=== PATIENT | female | born 1990 | race Caucasian/White ===

== ENCOUNTER → 2017-04-05 | Outpatient (CLI) | payer BC ==
[~2017-04-05] MED LIST: CRANBERRY1 CAP PO; DHA PO; FOLIC ACID0.4 MG PO; FOLIC ACID1 MG PO; IRON325 M1 PO; LEVEMIR100 U/ML SQ; MOTRIN 600600 MG/TAB PO; NORCO 325 MG-51 TAB PO; NOVOLOG 100U100 U/M1; PRENATAL1 TA1 PO; VIT B6; VITAMIN B6100 MG PO; ZANTAC 7575 MG PO
== END ==
LOC: BHSO 14:41
DX: F41.1 Generalized anxiety disorder (principal)

== ENCOUNTER 2019-01-27 08:55 | Emergency (ER) | payer MEDICAID ==
[~2019-01-27] VITALS: Ht 149.9 cm; Wt 72.7 kg
[2019-01-27 08:59] VITALS: TEMP 98.7
[2019-01-27] MEDS ORDERED: ZOFRAN ODT8 MG PO (09:11)
[2019-01-27 09:48] LABS: BASO # 0.1 (0.0-0.2); BASO % 0.6 % (0.0-2.0); EOS # 0.2 (0.0-0.7); EOS % 2.3 % (0-4.0); GRAN % 63.3 % (42.2-75.2); HEMOGLOBIN 11.9 g/dl (12.5-16.0); LYMPH # 2.3 (1.2-3.4); LYMPH % 28.7 % (20.0-51.0); MEAN CELL VOLUME 84 fl (80.0-100.0); MEAN CORPUSCULAR HEMOGLOBIN 28 pg (27.0-31.0); MEAN CORPUSCULAR HGB CONC 33 g/dl (33.0-37.0); MEAN PLATELET VOLUME 9.4 fl (7.4-10.4); MONO # 0.4 (0.1-0.6); MONO % 4.7 % (1.7-9.3); PLATELET COUNT 405 K/mm3 (130-400); RED BLOOD COUNT 4.27 M/mm3 (4.10-5.30); REDCELL DISTRIBUTION WIDTH-CV 12.2 % (11.5-14.5)
[2019-01-27 09:56] LABS: HEMATOCRIT 35.7 % (37.0-47.0)
[2019-01-27 10:08] LABS: ALBUMIN 4.1 gm/dL (3.5-5.0); BILIRUBIN,TOTAL 0.2 mg/dL (0.0-1.0); CALCIUM 9.1 mg/dL (8.4-10.2); CREATININE, serum 0.73 (0.52-1.25); POTASSIUM 3.4 mmol/L (3.4-5.0); TOTAL PROTEIN 7.3 gm/dL (6.4-8.2)
[2019-01-27 12:09] VITALS: BP 115/58; PULSE 91
== END 2019-01-27 12:22 | disposition home or self-care (01) ==
LOC: COL.ER 08:55
PROVIDERS: Emergency Medicine
DX: R19.7 Diarrhea, unspecified (principal); R51 Headache; F41.9 Anxiety disorder, unspecified; F43.10 Post-traumatic stress disorder, unspecified
CPT/HCPCS: J1200; J2765; J7030

== ENCOUNTER 2019-02-17 17:46 | Emergency (ER) | payer MEDICAID ==
[~2019-02-17] VITALS: Ht 124.5 cm; Wt 71.4 kg
[~2019-02-17 17:46] MED LIST changes: +ZOFRAN ODT8 MG PO
[2019-02-17 17:49] VITALS: BP 125/90; TEMP 98.6
[2019-02-17 20:46] VITALS: PULSE 73
[2019-02-18] MEDS ORDERED: AMBIEN CR 12.12.5 MG PO (13:39)
[2019-02-18] MEDS ORDERED: CELEXA40 MG PO (13:39)
[2019-02-18] MEDS ORDERED: NEURONTIN300 MG/CAP PO (13:41)
[2019-02-18] MEDS ORDERED: ATARAX50 MG PO (13:41)
[2019-02-18] MEDS ORDERED: BUSPAR 30MG30 MG/TAB PO (13:41)
[2019-02-18] MEDS ORDERED: BLISOVI 24 FE1 EACH PO (13:42)
== END 2019-02-17 20:46 | disposition home or self-care (01) ==
LOC: COL.ER 17:46
DX: G43.909 Migraine, unspecified, not intractable, without status migrainosus (principal); F43.10 Post-traumatic stress disorder, unspecified; F32.9 Major depressive disorder, single episode, unspecified; F41.9 Anxiety disorder, unspecified
CPT/HCPCS: J1200; J1885; J2550; J7030

== ENCOUNTER → 2019-02-18 | Emergency (ER) | payer MEDICAID ==
[~2019-02-18] VITALS: Ht 149.9 cm; Wt 71.4 kg
[~2019-02-18] MED LIST changes: +AMBIEN CR 12.12.5 MG PO; +ATARAX50 MG PO; +BLISOVI 24 FE1 EACH PO; +BUSPAR 30MG30 MG/TAB PO; +CELEXA40 MG PO; +NEURONTIN300 MG/CAP PO
[2019-02-18 13:35] VITALS: BP 126/85; PULSE 98; TEMP 97.8
== END ==
LOC: COL.ER 08:56
DX: G43.909 Migraine, unspecified, not intractable, without status migrainosus (principal); F43.10 Post-traumatic stress disorder, unspecified; F41.9 Anxiety disorder, unspecified; F32.9 Major depressive disorder, single episode, unspecified; E03.9 Hypothyroidism, unspecified; Z87.891 Personal history of nicotine dependence
CPT/HCPCS: J0595; J1200; J1885; J2765; J7030

== ENCOUNTER 2019-05-25 13:35 | Emergency (ER) | payer MEDICAID ==
[~2019-05-25] VITALS: Ht 149.9 cm; Wt 73.2 kg
[2019-05-25 13:43] VITALS: TEMP 97.2
[2019-05-25] MEDS ORDERED: CYMBALTA 60MG60 MG PO (13:58)
[2019-05-25] MEDS ORDERED: DESYREL 50MG50 MG PO (14:00)
[2019-05-25 14:27] LABS: COLLECTION METHOD CLEAN CATCH
[2019-05-25 14:40] LABS: BASO # 0.1 (0.0-0.2); BASO % 0.5 % (0.0-2.0); EOS # 0.4 (0.0-0.7); EOS % 3.6 % (0-4.0); GRAN % 69.4 % (42.2-75.2); HEMOGLOBIN 11.5 g/dl (12.5-16.0); LYMPH # 2.1 (1.2-3.4); LYMPH % 21.1 % (20.0-51.0); MEAN CELL VOLUME 84 fl (80.0-100.0); MEAN CORPUSCULAR HEMOGLOBIN 28 pg (27.0-31.0); MEAN CORPUSCULAR HGB CONC 33 g/dl (33.0-37.0); MEAN PLATELET VOLUME 9.3 fl (7.4-10.4); MONO # 0.5 (0.1-0.6); PLATELET COUNT 460 K/mm3 (130-400); RED BLOOD COUNT 4.18 M/mm3 (4.10-5.30); REDCELL DISTRIBUTION WIDTH-CV 12.3 % (11.5-14.5)
[2019-05-25 14:41] LABS: HEMATOCRIT 34.9 % (37.0-47.0)
[2019-05-25 14:44] LABS: MUCOUS Present /lpf; PH 5 (5-8); URINE APPEARANCE Hazy; URINE BACTERIA None Seen /hpf; URINE BILIRUBIN Negative (NEGATIVE); URINE BLOOD 1+ (NEGATIVE); URINE COLOR Yellow; URINE GLUCOSE Negative (NEGATIVE); URINE KETONE 1+ (NEGATIVE); URINE LEUKOCYTE ESTERASE Trace (NEGATIVE); URINE NITRATE Negative (NEGATIVE); URINE PROTEIN(semi-quant) Negative (NEGATIVE); URINE UROBILINOGEN Negative (NEGATIVE)
[2019-05-25 14:54] LABS: ALBUMIN 4.3 gm/dL (3.5-5.0); BILIRUBIN,TOTAL 0.3 mg/dL (0.0-1.0); C-REACTIVE PROTEIN 2.7 mg/dL (0.0-0.9); CREATININE, serum 0.6 (0.52-1.25); POTASSIUM 3.6 mmol/L (3.4-5.0); TOTAL PROTEIN 7.6 gm/dL (6.4-8.2)
[2019-05-25] MEDS ORDERED: NORCO 325 MG-51 TAB PO (16:09)
[2019-05-25] MEDS ORDERED: LEVAQUIN 5500 MG/TA1 PO (16:09)
[2019-05-25 16:28] VITALS: BP 119/78; PULSE 94
== END 2019-05-25 16:41 | disposition home or self-care (01) ==
LOC: COL.ER 13:35
PROVIDERS: Family Medicine
DX: J18.1 Lobar pneumonia, unspecified organism (principal); R91.1 Solitary pulmonary nodule
CPT/HCPCS: J2405; J7030; Q9967

== ENCOUNTER 2019-06-02 14:36 | Emergency (ER) | payer MEDICAID ==
[~2019-06-02] VITALS: Ht 149.9 cm; Wt 72.7 kg
[~2019-06-02 14:36] MED LIST changes: +CYMBALTA 60MG60 MG PO; +DESYREL 50MG50 MG PO; +LEVAQUIN 5500 MG/TA1 PO
[2019-06-02 14:46] VITALS: TEMP 98.4
[2019-06-02 15:46] LABS: BASO # 0.1 (0.0-0.2); BASO % 0.8 % (0.0-2.0); EOS # 0.2 (0.0-0.7); EOS % 1.9 % (0-4.0); GRAN # 6.8 (1.4-6.5); GRAN % 67.3 % (42.2-75.2); HEMATOCRIT 36.3 % (37.0-47.0); HEMOGLOBIN 11.8 g/dl (12.5-16.0); LYMPH # 2.5 (1.2-3.4); MEAN CELL VOLUME 85 fl (80.0-100.0); MEAN CORPUSCULAR HEMOGLOBIN 28 pg (27.0-31.0); MEAN CORPUSCULAR HGB CONC 33 g/dl (33.0-37.0); MEAN PLATELET VOLUME 9.3 fl (7.4-10.4); MONO # 0.5 (0.1-0.6); MONO % 4.7 % (1.7-9.3); PLATELET COUNT 435 K/mm3 (130-400); RED BLOOD COUNT 4.28 M/mm3 (4.10-5.30); REDCELL DISTRIBUTION WIDTH-CV 12.4 % (11.5-14.5)
[2019-06-02 15:53] LABS: ALBUMIN 4.2 gm/dL (3.5-5.0); BILIRUBIN,TOTAL 0.2 mg/dL (0.0-1.0); CALCIUM 9.1 mg/dL (8.4-10.2); CREATININE, serum 0.7 (0.52-1.25); POTASSIUM 3.4 mmol/L (3.4-5.0); TOTAL PROTEIN 7.4 gm/dL (6.4-8.2)
[2019-06-02 16:06] LABS: COLLECTION METHOD CLEAN CATCH
[2019-06-02 16:16] LABS: MUCOUS Present /lpf; PH 6 (5-8); URINE APPEARANCE Clear; URINE BACTERIA Rare /hpf; URINE BILIRUBIN Negative (NEGATIVE); URINE BLOOD 2+ (NEGATIVE); URINE COLOR Yellow; URINE GLUCOSE Negative (NEGATIVE); URINE KETONE Trace (NEGATIVE); URINE LEUKOCYTE ESTERASE Trace (NEGATIVE); URINE NITRATE Negative (NEGATIVE); URINE PROTEIN(semi-quant) Negative (NEGATIVE); URINE UROBILINOGEN Negative (NEGATIVE)
[2019-06-02] MEDS ORDERED: AMOXICILLIN 8751 TAB PO (17:23)
[2019-06-02 18:48] VITALS: BP 114/69; PULSE 84
== END 2019-06-02 18:58 | disposition home or self-care (01) ==
LOC: COL.ER 14:36
PROVIDERS: Family Medicine
DX: E86.0 Dehydration (principal); R00.2 Palpitations; R31.9 Hematuria, unspecified
CPT/HCPCS: J7030

== ENCOUNTER 2019-07-13 14:30 | Emergency (ER) | payer MEDICAID ==
[~2019-07-13] VITALS: Ht 149.9 cm; Wt 75.0 kg
[~2019-07-13 14:30] MED LIST changes: +AMOXICILLIN 8751 TAB PO
[2019-07-13 14:40] VITALS: TEMP 98.9
[2019-07-13 15:09] LABS: BASO # 0.1 (0.0-0.2); BASO % 0.9 % (0.0-2.0); EOS # 0.3 (0.0-0.7); EOS % 2.8 % (0-4.0); GRAN # 5.4 (1.4-6.5); GRAN % 57.6 % (42.2-75.2); HEMOGLOBIN 11.4 g/dl (12.5-16.0); MEAN CELL VOLUME 84 fl (80.0-100.0); MEAN CORPUSCULAR HEMOGLOBIN 27 pg (27.0-31.0); MEAN CORPUSCULAR HGB CONC 32 g/dl (33.0-37.0); MEAN PLATELET VOLUME 9.2 fl (7.4-10.4); MONO # 0.5 (0.1-0.6); MONO % 5.7 % (1.7-9.3); PLATELET COUNT 415 K/mm3 (130-400); RED BLOOD COUNT 4.22 M/mm3 (4.10-5.30); REDCELL DISTRIBUTION WIDTH-CV 12.4 % (11.5-14.5)
[2019-07-13 15:14] LABS: HEMATOCRIT 35.5 % (37.0-47.0)
[2019-07-13 15:18] LABS: ALBUMIN 4.5 gm/dL (3.5-5.0); BILIRUBIN,TOTAL 0.1 mg/dL (0.0-1.0); C-REACTIVE PROTEIN 1.5 mg/dL (0.0-0.9); CALCIUM 9.3 mg/dL (8.4-10.2); CREATININE, serum 0.62 (0.52-1.25); POTASSIUM 3.5 mmol/L (3.4-5.0); TOTAL PROTEIN 7.7 gm/dL (6.4-8.2)
[2019-07-13] MEDS ORDERED: CYMBALTA 30MG30 MG PO (15:26)
[2019-07-13] MEDS ORDERED: NEURONTIN300 MG/CAP PO (15:26)
[2019-07-13] MEDS ORDERED: ADDERALL15 MG PO (15:28)
[2019-07-13 16:02] LABS: TROPONIN-I < 0.012 ng/mL (0.000-0.035)
[2019-07-13] MEDS ORDERED: GLUCOSE TEST ST1 DEV MC (16:37)
[2019-07-13] MEDS ORDERED: FREESTYLE PREC1 EAC5 MC (16:37)
[2019-07-13] MEDS ORDERED: ULTRAM 50MG TAB50 MG PO (16:43)
[2019-07-13 17:20] VITALS: BP 111/79; PULSE 93
== END 2019-07-13 17:25 | disposition home or self-care (01) ==
LOC: COL.ER 14:30
PROVIDERS: Emergency Medicine
DX: R00.2 Palpitations (principal); F90.9 Attention-deficit hyperactivity disorder, unspecified type; F32.9 Major depressive disorder, single episode, unspecified; F41.9 Anxiety disorder, unspecified; Z98.890 Other specified postprocedural states; Z87.891 Personal history of nicotine dependence
CPT/HCPCS: J7030; Q9967

== ENCOUNTER 2019-09-20 16:43 | Emergency (ER) | payer MEDICAID ==
[~2019-09-20] VITALS: Ht 149.9 cm; Wt 74.1 kg
[~2019-09-20 16:43] MED LIST changes: +ADDERALL15 MG PO; +CYMBALTA 30MG30 MG PO; +FREESTYLE PREC1 EAC5 MC; +GLUCOSE TEST ST1 DEV MC; +ULTRAM 50MG TAB50 MG PO
[2019-09-20 16:47] VITALS: TEMP 98.7
[2019-09-20 18:08] LABS: COLLECTION METHOD CLEAN CATCH
[2019-09-20 18:15] LABS: MUCOUS Present /lpf; PH 6 (5-8); SQUAMOUS EPITHELIAL 0-2 /hpf; URINE APPEARANCE Clear; URINE BACTERIA None Seen /hpf; URINE BILIRUBIN Negative (NEGATIVE); URINE BLOOD Negative (NEGATIVE); URINE COLOR Yellow; URINE GLUCOSE Negative (NEGATIVE); URINE KETONE Negative (NEGATIVE); URINE LEUKOCYTE ESTERASE Negative (NEGATIVE); URINE NITRATE Negative (NEGATIVE); URINE PROTEIN(semi-quant) Negative (NEGATIVE); URINE RBC 0-2 /hpf; URINE UROBILINOGEN Negative (NEGATIVE)
[2019-09-20 18:15] LABS: BASO # 0.1 (0.0-0.2); BASO % 0.7 % (0.0-2.0); EOS # 0.2 (0.0-0.7); EOS % 1.6 % (0-4.0); GRAN # 6.4 (1.4-6.5); GRAN % 61.4 % (42.2-75.2); LYMPH # 3.1 (1.2-3.4); LYMPH % 29.7 % (20.0-51.0); MEAN CELL VOLUME 83 fl (80.0-100.0); MEAN CORPUSCULAR HEMOGLOBIN 27 pg (27.0-31.0); MEAN CORPUSCULAR HGB CONC 33 g/dl (33.0-37.0); MEAN PLATELET VOLUME 9.4 fl (7.4-10.4); MONO # 0.6 (0.1-0.6); PLATELET COUNT 432 K/mm3 (130-400); RED BLOOD COUNT 4.05 M/mm3 (4.10-5.30); REDCELL DISTRIBUTION WIDTH-CV 12.5 % (11.5-14.5)
[2019-09-20 18:36] LABS: HEMATOCRIT 33.4 % (37.0-47.0)
[2019-09-20 18:40] LABS: ALBUMIN 4.3 gm/dL (3.5-5.0); BILIRUBIN,TOTAL 0.2 mg/dL (0.0-1.0); CREATININE, serum 0.66 (0.52-1.25); POTASSIUM 3.5 mmol/L (3.4-5.0); TOTAL PROTEIN 7.5 gm/dL (6.4-8.2)
[2019-09-20] MEDS ORDERED: DOXYCYCLINE HY100 MG PO (21:28)
[2019-09-20] MEDS ORDERED: NORCO 325 MG-51 TAB PO (21:29)
[2019-09-20 21:37] VITALS: BP 127/79; PULSE 86
== END 2019-09-20 21:37 | disposition home or self-care (01) ==
LOC: COL.ER 16:43
PROVIDERS: Emergency Medicine
DX: N73.9 Female pelvic inflammatory disease, unspecified (principal); F41.9 Anxiety disorder, unspecified; F32.9 Major depressive disorder, single episode, unspecified; F17.210 Nicotine dependence, cigarettes, uncomplicated
CPT/HCPCS: J0696; J1885

== ENCOUNTER 2019-09-25 16:45 | Emergency (ER) | payer MEDICAID ==
[~2019-09-25] VITALS: Ht 149.9 cm; Wt 74.1 kg
[~2019-09-25 16:45] MED LIST changes: +DOXYCYCLINE HY100 MG PO
[2019-09-25 16:59] VITALS: BP 139/87; TEMP 97.5
[2019-09-25 17:50] LABS: COLLECTION METHOD CLEAN CATCH
[2019-09-25 17:53] LABS: BASO # 0.1 (0.0-0.2); BASO % 0.4 % (0.0-2.0); EOS # 0.2 (0.0-0.7); EOS % 1.5 % (0-4.0); GRAN # 7.6 (1.4-6.5); GRAN % 65.5 % (42.2-75.2); HEMATOCRIT 39.2 % (37.0-47.0); HEMOGLOBIN 12.6 g/dl (12.5-16.0); LYMPH # 3.1 (1.2-3.4); LYMPH % 26.8 % (20.0-51.0); MEAN CELL VOLUME 83 fl (80.0-100.0); MEAN CORPUSCULAR HEMOGLOBIN 27 pg (27.0-31.0); MEAN CORPUSCULAR HGB CONC 32 g/dl (33.0-37.0); MEAN PLATELET VOLUME 9.2 fl (7.4-10.4); MONO # 0.6 (0.1-0.6); MONO % 5.1 % (1.7-9.3); PLATELET COUNT 547 K/mm3 (130-400); RED BLOOD COUNT 4.73 M/mm3 (4.10-5.30); REDCELL DISTRIBUTION WIDTH-CV 12.6 % (11.5-14.5)
[2019-09-25 17:57] LABS: MUCOUS Present /lpf; PH 6 (5-8); SQUAMOUS EPITHELIAL 0-2 /hpf; URINE APPEARANCE Hazy; URINE BACTERIA None Seen /hpf; URINE BILIRUBIN Negative (NEGATIVE); URINE BLOOD Negative (NEGATIVE); URINE COLOR Yellow; URINE GLUCOSE Negative (NEGATIVE); URINE KETONE Negative (NEGATIVE); URINE LEUKOCYTE ESTERASE Trace (NEGATIVE); URINE NITRATE Negative (NEGATIVE); URINE PROTEIN(semi-quant) Negative (NEGATIVE); URINE RBC 0-2 /hpf; URINE UROBILINOGEN Negative (NEGATIVE)
[2019-09-25 18:05] LABS: ALBUMIN 4.8 gm/dL (3.5-5.0); BILIRUBIN,TOTAL 0.2 mg/dL (0.0-1.0); C-REACTIVE PROTEIN 1.8 mg/dL (0.0-0.9); CALCIUM 9.5 mg/dL (8.4-10.2); CREATININE, serum 0.74 (0.52-1.25); POTASSIUM 3.5 mmol/L (3.4-5.0); TOTAL PROTEIN 8.5 gm/dL (6.4-8.2)
[2019-09-25] MEDS ORDERED: ZOFRAN ODT4 MG PO (19:59)
[2019-09-25] MEDS ORDERED: PERCOCET 325 MG1 TA2 PO (19:59)
[2019-09-25 20:19] VITALS: PULSE 87
== END 2019-09-25 20:21 | disposition home or self-care (01) ==
LOC: COL.ER 16:45
PROVIDERS: Physician Assistant
DX: R10.30 Lower abdominal pain, unspecified (principal)
CPT/HCPCS: J1885; J2270; J2405; J7030; Q9967

== ENCOUNTER 2019-10-09 14:21 | Emergency (ER) | payer MEDICAID ==
[~2019-10-09] VITALS: Ht 149.9 cm; Wt 72.5 kg
[~2019-10-09 14:21] MED LIST changes: +PERCOCET 325 MG1 TA2 PO; +ZOFRAN ODT4 MG PO
[2019-10-09 17:15] LABS: BASO % 0.2 % (0.0-2.0); EOS # 0.1 (0.0-0.7); EOS % 0.7 % (0-4.0); GRAN # 10.4 (1.4-6.5); GRAN % 80.9 % (42.2-75.2); HEMATOCRIT 37.3 % (37.0-47.0); HEMOGLOBIN 12.1 g/dl (12.5-16.0); LYMPH # 1.9 (1.2-3.4); LYMPH % 15.1 % (20.0-51.0); MEAN CELL VOLUME 83 fl (80.0-100.0); MEAN CORPUSCULAR HEMOGLOBIN 27 pg (27.0-31.0); MEAN CORPUSCULAR HGB CONC 32 g/dl (33.0-37.0); MEAN PLATELET VOLUME 9.4 fl (7.4-10.4); MONO # 0.3 (0.1-0.6); MONO % 2.6 % (1.7-9.3); PLATELET COUNT 457 K/mm3 (130-400); REDCELL DISTRIBUTION WIDTH-CV 12.3 % (11.5-14.5)
[2019-10-09 17:25] LABS: ALBUMIN 4.6 gm/dL (3.5-5.0); BILIRUBIN,TOTAL 0.5 mg/dL (0.0-1.0); C-REACTIVE PROTEIN 2.2 mg/dL (0.0-0.9); CALCIUM 9.3 mg/dL (8.4-10.2); CREATININE, serum 0.65 (0.52-1.25); POTASSIUM 3.5 mmol/L (3.4-5.0); TOTAL PROTEIN 8.1 gm/dL (6.4-8.2)
[2019-10-09 18:45] VITALS: BP 103/76; TEMP 97.6
[2019-10-09 19:04] LABS: COLLECTION METHOD CLEAN CATCH
[2019-10-09 19:28] LABS: MUCOUS Present /lpf; PH 6 (5-8); URINE APPEARANCE Hazy; URINE BACTERIA None Seen /hpf; URINE BILIRUBIN Negative (NEGATIVE); URINE BLOOD 1+ (NEGATIVE); URINE COLOR Yellow; URINE GLUCOSE Negative (NEGATIVE); URINE KETONE 1+ (NEGATIVE); URINE LEUKOCYTE ESTERASE 2+ (NEGATIVE); URINE NITRATE Negative (NEGATIVE); URINE PROTEIN(semi-quant) Negative (NEGATIVE); URINE UROBILINOGEN Negative (NEGATIVE)
[2019-10-09] MEDS ORDERED: MACROBID 1100 MG/CAP PO (19:40)
[2019-10-09 20:12] VITALS: PULSE 98
== END 2019-10-09 20:07 | disposition home or self-care (01) ==
LOC: COL.ER 14:21
PROVIDERS: Nurse Practitioner; Physician Assistant
DX: N73.9 Female pelvic inflammatory disease, unspecified (principal); N39.0 Urinary tract infection, site not specified
CPT/HCPCS: J2270; J2405; J7030

== ENCOUNTER 2019-10-12 13:06 | Emergency (ER) | payer MEDICAID ==
[~2019-10-12] VITALS: Ht 124.5 cm; Wt 72.3 kg
[~2019-10-12 13:06] MED LIST changes: +MACROBID 1100 MG/CAP PO
[2019-10-12 15:08] LABS: COLLECTION METHOD CLEAN CATCH
[2019-10-12 15:14] LABS: BASO % 0.3 % (0.0-2.0); EOS # 0.1 (0.0-0.7); EOS % 1.4 % (0-4.0); GRAN # 6.2 (1.4-6.5); GRAN % 68.2 % (42.2-75.2); HEMATOCRIT 33.9 % (37.0-47.0); LYMPH # 2.1 (1.2-3.4); LYMPH % 22.6 % (20.0-51.0); MEAN CELL VOLUME 82 fl (80.0-100.0); MEAN CORPUSCULAR HEMOGLOBIN 27 pg (27.0-31.0); MEAN CORPUSCULAR HGB CONC 32 g/dl (33.0-37.0); MEAN PLATELET VOLUME 9.4 fl (7.4-10.4); MONO # 0.7 (0.1-0.6); MONO % 7.2 % (1.7-9.3); PLATELET COUNT 389 K/mm3 (130-400); RED BLOOD COUNT 4.14 M/mm3 (4.10-5.30); REDCELL DISTRIBUTION WIDTH-CV 12.4 % (11.5-14.5)
[2019-10-12 15:20] LABS: MUCOUS Present /lpf; PH 6 (5-8); SQUAMOUS EPITHELIAL 20-50 /hpf; URINE APPEARANCE Cloudy; URINE BACTERIA Rare /hpf; URINE BILIRUBIN Negative (NEGATIVE); URINE BLOOD Negative (NEGATIVE); URINE COLOR Amber; URINE GLUCOSE Negative (NEGATIVE); URINE KETONE 2+ (NEGATIVE); URINE LEUKOCYTE ESTERASE 2+ (NEGATIVE); URINE NITRATE Negative (NEGATIVE); URINE PROTEIN(semi-quant) 1+ (NEGATIVE)
[2019-10-12 15:26] LABS: BILIRUBIN,TOTAL 0.2 mg/dL (0.0-1.0); C-REACTIVE PROTEIN 2.5 mg/dL (0.0-0.9); CREATININE, serum 0.73 (0.52-1.25); POTASSIUM 3.3 mmol/L (3.4-5.0)
[2019-10-12] MEDS ORDERED: ZOFRAN ODT4 MG PO ×2 (17:09→17:11)
[2019-10-12] MEDS ORDERED: ULTRAM 50MG TAB50 MG PO ×2 (17:09→17:11)
[2019-10-12 17:50] VITALS: BP 129/90; PULSE 93; TEMP 98.3
[2019-10-12] MEDS ORDERED: NORCO 325 MG-51 TAB PO (17:54)
== END 2019-10-12 18:00 | disposition home or self-care (01) ==
LOC: COL.ER 13:06
PROVIDERS: Family Medicine
DX: K52.9 Noninfective gastroenteritis and colitis, unspecified (principal); E86.9 Volume depletion, unspecified
CPT/HCPCS: J2270; J2405; J7030; J7120; Q9967

== ENCOUNTER 2019-10-24 09:51 | Emergency (ER) | payer MEDICAID ==
[~2019-10-24] VITALS: Ht 149.9 cm; Wt 71.4 kg
[2019-10-24 10:32] LABS: BASO % 0.5 % (0.0-2.0); EOS % 0.3 % (0-4.0); GRAN # 5.6 (1.4-6.5); GRAN % 74.3 % (42.2-75.2); HEMATOCRIT 33.7 % (37.0-47.0); HEMOGLOBIN 10.9 g/dl (12.5-16.0); LYMPH # 1.6 (1.2-3.4); LYMPH % 21.1 % (20.0-51.0); MEAN CELL VOLUME 82 fl (80.0-100.0); MEAN CORPUSCULAR HEMOGLOBIN 26 pg (27.0-31.0); MEAN CORPUSCULAR HGB CONC 32 g/dl (33.0-37.0); MEAN PLATELET VOLUME 9.7 fl (7.4-10.4); MONO # 0.3 (0.1-0.6); MONO % 3.5 % (1.7-9.3); PLATELET COUNT 418 K/mm3 (130-400); RED BLOOD COUNT 4.13 M/mm3 (4.10-5.30); REDCELL DISTRIBUTION WIDTH-CV 12.2 % (11.5-14.5)
[2019-10-24 10:44] LABS: ALBUMIN 4.3 gm/dL (3.5-5.0); BILIRUBIN,TOTAL 0.2 mg/dL (0.0-1.0); C-REACTIVE PROTEIN 1.2 mg/dL (0.0-0.9); CALCIUM 8.7 mg/dL (8.4-10.2); CREATININE, serum 0.58 (0.52-1.25); TOTAL PROTEIN 7.3 gm/dL (6.4-8.2)
[2019-10-24] MEDS ORDERED: FLEXERIL 1010 MG/TAB PO (11:34)
[2019-10-24] MEDS ORDERED: LIDODERM 5% PATC1 EA TP (11:34)
[2019-10-24 11:36] LABS: COLLECTION METHOD CLEAN CATCH
[2019-10-24 11:46] LABS: MUCOUS Present /lpf; PH 6 (5-8); SQUAMOUS EPITHELIAL 0-2 /hpf; URINE APPEARANCE Hazy; URINE BACTERIA None Seen /hpf; URINE BILIRUBIN Negative (NEGATIVE); URINE BLOOD Negative (NEGATIVE); URINE COLOR Yellow; URINE GLUCOSE Negative (NEGATIVE); URINE KETONE Negative (NEGATIVE); URINE LEUKOCYTE ESTERASE Negative (NEGATIVE); URINE NITRATE Negative (NEGATIVE); URINE PROTEIN(semi-quant) Negative (NEGATIVE); URINE RBC 0-2 /hpf; URINE UROBILINOGEN Negative (NEGATIVE)
[2019-10-24 12:36] VITALS: BP 128/85; PULSE 99; TEMP 98.6
== END 2019-10-24 12:47 | disposition home or self-care (01) ==
LOC: COL.ER 09:51
PROVIDERS: Physician Assistant
DX: M54.2 Cervicalgia (principal); R11.10 Vomiting, unspecified; F41.9 Anxiety disorder, unspecified; F32.9 Major depressive disorder, single episode, unspecified; F17.290 Nicotine dependence, other tobacco product, uncomplicated; Z88.8 Allergy status to other drugs, medicaments and biological substances
CPT/HCPCS: J1885; J2060; J2270; J2405; J7030

== ENCOUNTER 2019-11-07 17:42 | Emergency (ER) | payer MEDICAID ==
[~2019-11-07] VITALS: Ht 149.9 cm; Wt 71.8 kg
[~2019-11-07 17:42] MED LIST changes: +FLEXERIL 1010 MG/TAB PO; +LIDODERM 5% PATC1 EA TP
[2019-11-07 17:56] VITALS: TEMP 97.4
[2019-11-07 19:05] LABS: COLLECTION METHOD CLEAN CATCH
[2019-11-07 19:15] LABS: MUCOUS Present /lpf; PH 5 (5-8); URINE APPEARANCE Hazy; URINE BACTERIA None Seen /hpf; URINE BILIRUBIN Negative (NEGATIVE); URINE BLOOD 3+ (NEGATIVE); URINE COLOR Yellow; URINE GLUCOSE Negative (NEGATIVE); URINE KETONE Negative (NEGATIVE); URINE LEUKOCYTE ESTERASE Negative (NEGATIVE); URINE NITRATE Negative (NEGATIVE); URINE PROTEIN(semi-quant) Negative (NEGATIVE); URINE UROBILINOGEN Negative (NEGATIVE)
[2019-11-07] MEDS ORDERED: MACROBID 1100 MG/CAP PO (19:18)
[2019-11-07 19:30] VITALS: BP 118/73
[2019-11-07 19:54] VITALS: PULSE 89
== END 2019-11-07 19:54 | disposition home or self-care (01) ==
LOC: COL.ER 17:42
PROVIDERS: Emergency Medicine
DX: N39.0 Urinary tract infection, site not specified (principal); G89.18 Other acute postprocedural pain
CPT/HCPCS: J1170

== ENCOUNTER 2019-11-28 13:34 | Emergency (ER) | payer MEDICAID ==
[~2019-11-28] VITALS: Ht 149.9 cm; Wt 71.8 kg
[2019-11-28 13:46] VITALS: TEMP 98.9
[2019-11-28 16:23] LABS: COLLECTION METHOD CLEAN CATCH
[2019-11-28 16:30] LABS: BASO % 0.3 % (0.0-2.0); EOS # 0.1 (0.0-0.7); EOS % 1.2 % (0-4.0); GRAN # 8.2 (1.4-6.5); GRAN % 69.7 % (42.2-75.2); HEMOGLOBIN 11.2 g/dl (12.5-16.0); LYMPH # 2.9 (1.2-3.4); LYMPH % 24.1 % (20.0-51.0); MEAN CELL VOLUME 83 fl (80.0-100.0); MEAN CORPUSCULAR HEMOGLOBIN 26 pg (27.0-31.0); MEAN CORPUSCULAR HGB CONC 32 g/dl (33.0-37.0); MEAN PLATELET VOLUME 10.8 fl (7.4-10.4); MONO # 0.5 (0.1-0.6); MONO % 4.3 % (1.7-9.3); PLATELET COUNT 307 K/mm3 (130-400); RED BLOOD COUNT 4.24 M/mm3 (4.10-5.30); REDCELL DISTRIBUTION WIDTH-CV 12.8 % (11.5-14.5)
[2019-11-28 16:39] LABS: ALBUMIN 4.6 gm/dL (3.5-5.0); BILIRUBIN,TOTAL 0.6 mg/dL (0.0-1.0); C-REACTIVE PROTEIN 1.8 mg/dL (0.0-0.9); CREATININE, serum 0.6 (0.52-1.25); POTASSIUM 4.1 mmol/L (3.4-5.0)
[2019-11-28 16:51] LABS: HEMATOCRIT 35.1 % (37.0-47.0)
[2019-11-28 16:54] LABS: MUCOUS Present /lpf; SQUAMOUS EPITHELIAL 0-2 /hpf; URINE BACTERIA None Seen /hpf; URINE RBC 0-2 /hpf
[2019-11-28 17:07] LABS: PH 5 (5-8); URINE APPEARANCE Hazy; URINE BILIRUBIN Negative (NEGATIVE); URINE BLOOD 1+ (NEGATIVE); URINE COLOR Yellow; URINE GLUCOSE Negative (NEGATIVE); URINE KETONE Negative (NEGATIVE); URINE LEUKOCYTE ESTERASE Negative (NEGATIVE); URINE NITRATE Negative (NEGATIVE); URINE PROTEIN(semi-quant) Negative (NEGATIVE); URINE UROBILINOGEN Negative (NEGATIVE)
[2019-11-28 18:49] LABS: HEMOGLOBIN 10.4 g/dl (12.5-16.0); MEAN CELL VOLUME 83 fl (80.0-100.0); MEAN CORPUSCULAR HEMOGLOBIN 27 pg (27.0-31.0); MEAN CORPUSCULAR HGB CONC 32 g/dl (33.0-37.0); MEAN PLATELET VOLUME 9.7 fl (7.4-10.4); PLATELET COUNT 384 K/mm3 (130-400); RED BLOOD COUNT 3.89 M/mm3 (4.10-5.30); REDCELL DISTRIBUTION WIDTH-CV 12.7 % (11.5-14.5)
[2019-11-28 18:50] LABS: HEMATOCRIT 32.3 % (37.0-47.0)
[2019-11-28 19:22] VITALS: BP 128/86; PULSE 76
== END 2019-11-28 19:34 | disposition home or self-care (01) ==
LOC: COL.ER 13:34
PROVIDERS: Family Medicine
DX: K62.5 Hemorrhage of anus and rectum (principal)
CPT/HCPCS: J3010; J7030

== ENCOUNTER 2019-12-19 10:32 | Emergency (ER) | payer MEDICAID ==
[~2019-12-19] VITALS: Ht 149.9 cm; Wt 71.8 kg
[2019-12-19 10:35] VITALS: BP 118/73; TEMP 97.8
[2019-12-19] MEDS ORDERED: SPRINTEC 35 MCG1 TAB PO (10:48)
[2019-12-19 11:06] LABS: COLLECTION METHOD CLEAN CATCH
[2019-12-19 11:14] LABS: MUCOUS Present /lpf; PH 6 (5-8); URINE APPEARANCE Hazy; URINE BACTERIA None Seen /hpf; URINE BILIRUBIN Negative (NEGATIVE); URINE BLOOD Negative (NEGATIVE); URINE COLOR Yellow; URINE GLUCOSE Negative (NEGATIVE); URINE KETONE Negative (NEGATIVE); URINE LEUKOCYTE ESTERASE Trace (NEGATIVE); URINE NITRATE Negative (NEGATIVE); URINE PROTEIN(semi-quant) Negative (NEGATIVE); URINE RBC 0-2 /hpf; URINE UROBILINOGEN Negative (NEGATIVE)
[2019-12-19] MEDS ORDERED: ULTRAM 50MG TAB50 MG PO (12:30)
[2019-12-19] MEDS ORDERED: AMOXICILLIN 8751 TAB PO (12:30)
[2019-12-19] MEDS ORDERED: PROAIR HFA0.09 MG/AC IH (12:49)
[2019-12-19 12:51] VITALS: PULSE 100
[2019-12-20] MEDS ORDERED: TUSS PO (12:00)
== END 2019-12-19 12:51 | disposition home or self-care (01) ==
LOC: COL.ER 10:32
PROVIDERS: Nurse Practitioner
DX: J40 Bronchitis, not specified as acute or chronic (principal); I10 Essential (primary) hypertension; F32.9 Major depressive disorder, single episode, unspecified; F41.9 Anxiety disorder, unspecified; F90.9 Attention-deficit hyperactivity disorder, unspecified type; F43.10 Post-traumatic stress disorder, unspecified

== ENCOUNTER 2019-12-20 09:59 | Emergency (ER) | payer MEDICAID ==
[~2019-12-20] VITALS: Ht 149.9 cm; Wt 71.8 kg
[~2019-12-20 09:59] MED LIST changes: +PROAIR HFA0.09 MG/AC IH; +SPRINTEC 35 MCG1 TAB PO
[2019-12-20 10:09] VITALS: TEMP 99.4
[2019-12-20 11:11] LABS: BASO % 0.4 % (0.0-2.0); EOS # 0.1 (0.0-0.7); EOS % 1.7 % (0-4.0); GRAN # 6.7 (1.4-6.5); GRAN % 79.5 % (42.2-75.2); HEMOGLOBIN 10.7 g/dl (12.5-16.0); MEAN CELL VOLUME 81 fl (80.0-100.0); MEAN CORPUSCULAR HEMOGLOBIN 26 pg (27.0-31.0); MEAN CORPUSCULAR HGB CONC 33 g/dl (33.0-37.0); MEAN PLATELET VOLUME 9.5 fl (7.4-10.4); MONO # 0.5 (0.1-0.6); MONO % 5.8 % (1.7-9.3); PLATELET COUNT 353 K/mm3 (130-400); RED BLOOD COUNT 4.06 M/mm3 (4.10-5.30); REDCELL DISTRIBUTION WIDTH-CV 12.5 % (11.5-14.5)
[2019-12-20 11:13] LABS: HEMATOCRIT 32.8 % (37.0-47.0)
[2019-12-20 11:28] LABS: ALBUMIN 4.4 gm/dL (3.5-5.0); BILIRUBIN,TOTAL 0.4 mg/dL (0.0-1.0); C-REACTIVE PROTEIN 4.3 mg/dL (0.0-0.9); CALCIUM 9.1 mg/dL (8.4-10.2); CREATININE, serum 0.58 (0.52-1.25); POTASSIUM 3.7 mmol/L (3.4-5.0); TOTAL PROTEIN 7.6 gm/dL (6.4-8.2)
[2019-12-20] MEDS ORDERED: TUSS PO (12:00)
[2019-12-20 12:08] VITALS: BP 115/80; PULSE 90
== END 2019-12-20 12:14 | disposition home or self-care (01) ==
LOC: COL.ER 09:59
PROVIDERS: Nurse Practitioner
DX: J40 Bronchitis, not specified as acute or chronic (principal); F17.290 Nicotine dependence, other tobacco product, uncomplicated; Z88.6 Allergy status to analgesic agent
CPT/HCPCS: J2270; J2405; J7030

== ENCOUNTER 2019-12-23 08:46 | Emergency (ER) | payer MEDICAID ==
[~2019-12-23] VITALS: Ht 149.9 cm; Wt 71.8 kg
[~2019-12-23 08:46] MED LIST changes: +TUSS PO
[2019-12-23 08:54] VITALS: TEMP 98.1
[2019-12-23 09:35] LABS: COLLECTION METHOD CLEAN CATCH
[2019-12-23 09:40] LABS: BASO % 0.4 % (0.0-2.0); EOS # 0.2 (0.0-0.7); GRAN # 4.1 (1.4-6.5); HEMOGLOBIN 11.1 g/dl (12.5-16.0); LYMPH # 2.2 (1.2-3.4); LYMPH % 31.4 % (20.0-51.0); MEAN CELL VOLUME 82 fl (80.0-100.0); MEAN CORPUSCULAR HEMOGLOBIN 27 pg (27.0-31.0); MEAN CORPUSCULAR HGB CONC 32 g/dl (33.0-37.0); MEAN PLATELET VOLUME 9.7 fl (7.4-10.4); MONO # 0.5 (0.1-0.6); MONO % 6.8 % (1.7-9.3); PLATELET COUNT 390 K/mm3 (130-400); RED BLOOD COUNT 4.19 M/mm3 (4.10-5.30); REDCELL DISTRIBUTION WIDTH-CV 12.6 % (11.5-14.5)
[2019-12-23 09:44] LABS: MUCOUS Present /lpf; PH 6 (5-8); URINE APPEARANCE Clear; URINE BACTERIA None Seen /hpf; URINE BILIRUBIN Negative (NEGATIVE); URINE BLOOD Negative (NEGATIVE); URINE COLOR Amber; URINE GLUCOSE Negative (NEGATIVE); URINE KETONE Negative (NEGATIVE); URINE LEUKOCYTE ESTERASE Negative (NEGATIVE); URINE NITRATE Negative (NEGATIVE); URINE PROTEIN(semi-quant) Negative (NEGATIVE)
[2019-12-23 09:47] LABS: ALBUMIN 4.3 gm/dL (3.5-5.0); BILIRUBIN,TOTAL 0.3 mg/dL (0.0-1.0); CALCIUM 9.1 mg/dL (8.4-10.2); CREATININE, serum 0.54 (0.52-1.25); POTASSIUM 3.8 mmol/L (3.4-5.0); TOTAL PROTEIN 7.8 gm/dL (6.4-8.2)
[2019-12-23 10:21] LABS: HEMATOCRIT 34.5 % (37.0-47.0)
[2019-12-23 11:38] VITALS: BP 134/81; PULSE 78
== END 2019-12-23 11:35 | disposition home or self-care (01) ==
LOC: COL.ER 08:46
PROVIDERS: Physician Assistant
DX: R10.11 Right upper quadrant pain (principal); R11.0 Nausea; F17.210 Nicotine dependence, cigarettes, uncomplicated
CPT/HCPCS: J1630; J1885; J2405; J7030

== ENCOUNTER 2019-12-25 05:35 | Emergency (ER) | payer MEDICAID ==
[~2019-12-25] VITALS: Ht 149.9 cm; Wt 71.8 kg
[~2019-12-25 05:35] MED LIST changes: -TOPROL XL 50MG50 MG PO; -VALIUM 10MG10 MG/TAB PO
[2019-12-25 05:37] VITALS: BP 143/89; TEMP 98.2
[2019-12-25] MEDS ORDERED: VALIUM 10MG10 MG/TAB PO (05:45)
[2019-12-25 06:34] VITALS: PULSE 87
[2019-12-25] MEDS ORDERED: ATARAX50 MG PO (16:14)
[2019-12-25] MEDS ORDERED: TOPROL XL 50MG50 MG PO (16:15)
[2019-12-26] MEDS ORDERED: PERCOCET 325 MG1 TA2 PO (14:12)
== END 2019-12-25 06:35 | disposition home or self-care (01) ==
LOC: COL.ER 05:35
DX: R10.11 Right upper quadrant pain (principal); G89.29 Other chronic pain; F43.10 Post-traumatic stress disorder, unspecified; F17.210 Nicotine dependence, cigarettes, uncomplicated
CPT/HCPCS: J1170

== ENCOUNTER 2019-12-25 12:11 | Observation (INO) | payer MEDICAID ==
[2019-12-25] VITALS (9 sets, daily range): BP systolic 108–129; BP diastolic 63–80; PULSE 72–119; TEMP 98.1
[~2019-12-25] VITALS: Ht 149.9 cm; Wt 72.2 kg
[~2019-12-25 12:11] MED LIST changes: +VALIUM 10MG10 MG/TAB PO
[2019-12-25 13:15] LABS: COLLECTION METHOD CLEAN CATCH
[2019-12-25 13:23] LABS: BASO % 0.2 % (0.0-2.0); EOS % 0.3 % (0-4.0); GRAN # 8.4 (1.4-6.5); GRAN % 72.1 % (42.2-75.2); HEMOGLOBIN 10.8 g/dl (12.5-16.0); LYMPH # 2.6 (1.2-3.4); LYMPH % 21.9 % (20.0-51.0); MEAN CELL VOLUME 81 fl (80.0-100.0); MEAN CORPUSCULAR HEMOGLOBIN 26 pg (27.0-31.0); MEAN CORPUSCULAR HGB CONC 33 g/dl (33.0-37.0); MEAN PLATELET VOLUME 9.8 fl (7.4-10.4); MONO # 0.6 (0.1-0.6); MONO % 5.1 % (1.7-9.3); PLATELET COUNT 421 K/mm3 (130-400); RED BLOOD COUNT 4.09 M/mm3 (4.10-5.30); REDCELL DISTRIBUTION WIDTH-CV 12.3 % (11.5-14.5)
[2019-12-25 13:26] LABS: MUCOUS Present /lpf; PH 6 (5-8); URINE APPEARANCE Hazy; URINE BACTERIA None Seen /hpf; URINE BILIRUBIN Negative (NEGATIVE); URINE BLOOD Negative (NEGATIVE); URINE COLOR Yellow; URINE GLUCOSE Negative (NEGATIVE); URINE KETONE Negative (NEGATIVE); URINE LEUKOCYTE ESTERASE Negative (NEGATIVE); URINE NITRATE Negative (NEGATIVE); URINE PROTEIN(semi-quant) Negative (NEGATIVE); URINE RBC 0-2 /hpf; URINE UROBILINOGEN Negative (NEGATIVE)
[2019-12-25 13:27] LABS: HEMATOCRIT 33.1 % (37.0-47.0)
[2019-12-25 13:36] LABS: ALBUMIN 4.4 gm/dL (3.5-5.0); BILIRUBIN,TOTAL 0.4 mg/dL (0.0-1.0); C-REACTIVE PROTEIN 3.8 mg/dL (0.0-0.9); CALCIUM 9.2 mg/dL (8.4-10.2); CREATININE, serum 0.54 (0.52-1.25); POTASSIUM 3.3 mmol/L (3.4-5.0); TOTAL PROTEIN 7.8 gm/dL (6.4-8.2)
[2019-12-25] MEDS ORDERED: ATARAX50 MG PO (16:14)
[2019-12-25] MEDS ORDERED: TOPROL XL 50MG50 MG PO (16:15)
--- NOTE | 2019-12-25 16:21 | NUR ---
PT ADMITTED TO ROOM 322 ASSESSMENTS COMPLETE. PT RESTING IN BED WATCHING TV.
--- NOTE | 2019-12-25 17:25 | NUR ---
PT TO SURGERY PER BED WITH [employer] AT THIS TIME.
[2019-12-26 03:45] VITALS: BP 108/68; PULSE 65; TEMP 97.7
--- NOTE | 2019-12-26 04:58 | NUR ---
Patient rested well throughout the night. States PRN morphine works better for pain. Education provided on the importance of using oral pain medication to manage pain and only using morphine for breakthrough pain. Verbalizes understanding. Dr. Castro notified about ineffective pain medication and he ordered an increase to 2 tabs of [place] instead of just one. Noted to be effective as patient has been asleep. Lap sites covered with bandaids. CDI. Voiding well this shift. Will continue to monitor.
[2019-12-26 08:04] VITALS: BP 104/64; PULSE 69; TEMP 98.4
--- NOTE | 2019-12-26 08:16 | NUR ---
Lying in bed with eyes open. Rating pain in abd 6/10 and describes as a sharp, stabbing pain. Lap sites x3 to abd with bandaids in place. No redness, drainage, or swelling noted to lap sites. Patient says that she has not passed gas at this time. Encouraged patient to ambulate in halls. Denies needs at this time.
--- NOTE | 2019-12-26 08:34 | NUR ---
Up in room. Changed into personal clothes. Denies needs at this time.
--- NOTE | 2019-12-26 10:34 | NUR ---
Patient was either resting or sleeping and I did not want to disturb their rest.
--- NOTE | 2019-12-26 11:47 | NUR ---
Sitting up in bed eating lunch. Rates pain 5/10 in abd, sharp/burning. Administered Percocet as prescribed. Patient denies further needs at this time.
[2019-12-26 12:04] VITALS: BP 110/72; PULSE 79; TEMP 97.7
--- NOTE | 2019-12-26 12:40 | NUR ---
Ambulates in halls. Gait steady. Returns to room.
[2019-12-26] MEDS ORDERED: PERCOCET 325 MG1 TA2 PO (14:12)
--- NOTE | 2019-12-26 14:57 | NUR ---
Patient ready for diacharge. Has contacted her parents and they are on their way to come get the patient. IV to right hand dc'd with catheter intact. Applied 2x2s to site and reinforced with coban. Reviewed discharge instructions with the patient. Questions answered. Patient signs documents. Provided discharge packet to the patient. Patient will call when her parents arrive to the ER pick up driver area to be escorted out.
--- NOTE | 2019-12-26 15:19 | NUR ---
Patient receives call that her ride is in the ER peanut picker ready for her. Escorted out to [facility] by KATLYN Porter.
== END 2019-12-26 15:19 | disposition home or self-care (01) ==
LOC: COL.ER 12:11 → SURG 13:50
PROVIDERS: Physician Assistant; ADMIT Surgery
DX: K80.12 Calculus of gallbladder with acute and chronic cholecystitis without obstruction (principal); K21.9 Gastro-esophageal reflux disease without esophagitis; F41.9 Anxiety disorder, unspecified; F32.9 Major depressive disorder, single episode, unspecified; F17.290 Nicotine dependence, other tobacco product, uncomplicated; F90.9 Attention-deficit hyperactivity disorder, unspecified type; Z88.8 Allergy status to other drugs, medicaments and biological substances; Z79.899 Other long term (current) drug therapy
CPT/HCPCS: G0378; J1100; J1885; J2250; J2270; J2405; J2543; J2704; J3010; J7030; J7120

== ENCOUNTER → 2019-12-25 | Outpatient (CLI) | payer MEDICAID ==
[~2019-12-25] MED LIST changes: +TOPROL XL 50MG50 MG PO; +VALIUM 10MG10 MG/TAB PO
== END ==
LOC: COL.RAD 11:28
DX: K81.9 Cholecystitis, unspecified (principal)

== ENCOUNTER 2020-07-03 10:05 | Emergency (ER) | payer MEDICAID ==
[~2020-07-03] VITALS: Ht 149.9 cm; Wt 74.1 kg
[~2020-07-03 10:05] MED LIST changes: +TOPROL XL 50MG50 MG PO
[2020-07-03 10:12] VITALS: BP 108/76
[2020-07-03] MEDS ORDERED: CEPHALEXIN500 M1 PO (11:28)
[2020-07-03 11:47] VITALS: PULSE 81; TEMP 98.1
[2020-07-04] MEDS ORDERED: NORCO 325 MG-51 TAB PO (11:35)
[2020-07-04] MEDS ORDERED: ZOVIRAX800 MG PO ×3 (11:35→12:25)
[2020-07-04] MEDS ORDERED: PERCOCET 325 MG1 TA2 PO ×2 (11:58→11:59)
== END 2020-07-03 11:47 | disposition home or self-care (01) ==
LOC: COL.ER 10:05
DX: L72.0 Epidermal cyst (principal); G43.909 Migraine, unspecified, not intractable, without status migrainosus; F32.9 Major depressive disorder, single episode, unspecified; F41.9 Anxiety disorder, unspecified; F90.9 Attention-deficit hyperactivity disorder, unspecified type; F17.290 Nicotine dependence, other tobacco product, uncomplicated; Z90.710 Acquired absence of both cervix and uterus; Z90.49 Acquired absence of other specified parts of digestive tract; Z88.8 Allergy status to other drugs, medicaments and biological substances
CPT/HCPCS: J1885; J2405

== ENCOUNTER 2020-07-04 11:15 | Emergency (ER) | payer MEDICAID ==
[~2020-07-04] VITALS: Ht 149.9 cm; Wt 72.7 kg
[~2020-07-04 11:15] MED LIST changes: +CEPHALEXIN500 M1 PO
[2020-07-04 11:21] VITALS: BP 119/55; TEMP 99.1
[2020-07-04] MEDS ORDERED: NORCO 325 MG-51 TAB PO (11:35)
[2020-07-04] MEDS ORDERED: ZOVIRAX800 MG PO ×3 (11:35→12:25)
[2020-07-04 11:57] VITALS: PULSE 94
[2020-07-04] MEDS ORDERED: PERCOCET 325 MG1 TA2 PO ×2 (11:58→11:59)
== END 2020-07-04 11:57 | disposition home or self-care (01) ==
LOC: COL.ER 11:15
DX: L03.811 Cellulitis of head [any part, except face] (principal); I88.9 Nonspecific lymphadenitis, unspecified
CPT/HCPCS: J1790; J3010

== ENCOUNTER 2020-07-20 14:45 | Emergency (ER) | payer MEDICAID ==
[~2020-07-20] VITALS: Ht 149.9 cm; Wt 72.7 kg
[~2020-07-20 14:45] MED LIST changes: +ZOVIRAX800 MG PO
[2020-07-20 15:07] VITALS: BP 110/82; TEMP 98.1
[2020-07-20 17:19] VITALS: PULSE 75
== END 2020-07-20 17:19 | disposition home or self-care (01) ==
LOC: COL.ER 14:45
DX: B02.9 Zoster without complications (principal); F41.9 Anxiety disorder, unspecified; F32.9 Major depressive disorder, single episode, unspecified; F17.290 Nicotine dependence, other tobacco product, uncomplicated; Z90.49 Acquired absence of other specified parts of digestive tract; Z90.710 Acquired absence of both cervix and uterus; Z88.3 Allergy status to other anti-infective agents; Z88.8 Allergy status to other drugs, medicaments and biological substances
CPT/HCPCS: J2270; J2405; J3010; J7030

== ENCOUNTER 2020-07-30 00:18 | Emergency (ER) | payer MEDICAID ==
[~2020-07-30] VITALS: Ht 149.9 cm; Wt 72.7 kg
[2020-07-30] MEDS ORDERED: DOXYCYCLINE HY100 MG PO (01:20)
[2020-07-30 01:40] VITALS: BP 142/80; PULSE 68; TEMP 97.2
== END 2020-07-30 01:40 | disposition home or self-care (01) ==
LOC: COL.ER 00:18
DX: L73.8 Other specified follicular disorders (principal); F32.9 Major depressive disorder, single episode, unspecified

== ENCOUNTER 2020-09-04 21:56 | Emergency (ER) | payer MEDICAID ==
[~2020-09-04] VITALS: Ht 149.9 cm; Wt 74.1 kg
[2020-09-04 22:31] VITALS: TEMP 97.2
[2020-09-05 02:22] VITALS: BP 108/71; PULSE 71
== END 2020-09-05 02:22 | disposition home or self-care (01) ==
LOC: COL.ER 21:56
DX: R06.02 Shortness of breath (principal); R53.83 Other fatigue; F41.9 Anxiety disorder, unspecified; F32.9 Major depressive disorder, single episode, unspecified; F17.290 Nicotine dependence, other tobacco product, uncomplicated; Z20.828 Contact with and (suspected) exposure to other viral communicable diseases; Z90.49 Acquired absence of other specified parts of digestive tract; Z88.8 Allergy status to other drugs, medicaments and biological substances
CPT/HCPCS: J7030

== ENCOUNTER 2020-10-15 19:51 | Emergency (ER) | payer MEDICAID ==
[~2020-10-15] VITALS: Ht 149.9 cm; Wt 74.5 kg
[2020-10-15 19:57] VITALS: TEMP 98.5
[2020-10-15 20:21] LABS: COLLECTION METHOD CLEAN CATCH
[2020-10-15 20:27] LABS: MUCOUS Present /lpf; PH 7 (5-8); URINE APPEARANCE Clear; URINE BACTERIA Rare /hpf; URINE BILIRUBIN Negative (NEGATIVE); URINE BLOOD Negative (NEGATIVE); URINE COLOR Yellow; URINE GLUCOSE Negative (NEGATIVE); URINE KETONE Negative (NEGATIVE); URINE LEUKOCYTE ESTERASE Negative (NEGATIVE); URINE NITRATE Negative (NEGATIVE); URINE PROTEIN(semi-quant) Negative (NEGATIVE); URINE RBC 0-2 /hpf; URINE UROBILINOGEN Negative (NEGATIVE)
[2020-10-15] MEDS ORDERED: FLEXERIL 1010 MG/TAB PO (21:26)
[2020-10-15 21:28] VITALS: BP 128/70; PULSE 75
== END 2020-10-15 21:39 | disposition home or self-care (01) ==
LOC: COL.ER 19:51
PROVIDERS: Emergency Medicine
DX: M54.5 Low back pain (principal); F32.9 Major depressive disorder, single episode, unspecified; F17.200 Nicotine dependence, unspecified, uncomplicated; Z90.710 Acquired absence of both cervix and uterus; Z90.49 Acquired absence of other specified parts of digestive tract; Z32.02 Encounter for pregnancy test, result negative; Z88.8 Allergy status to other drugs, medicaments and biological substances

== ENCOUNTER 2020-10-18 16:00 | Emergency (ER) | payer MEDICAID ==
[~2020-10-18] VITALS: Ht 149.9 cm; Wt 74.1 kg
[2020-10-18 16:02] VITALS: TEMP 98.6
[2020-10-18] MEDS ORDERED: FLEXERIL 1010 MG/TAB PO (17:22)
[2020-10-18 17:41] VITALS: BP 137/84; PULSE 80
== END 2020-10-18 17:43 | disposition home or self-care (01) ==
LOC: COL.ER 16:00
DX: S16.1XXA Strain of muscle, fascia and tendon at neck level, initial encounter (principal); F17.290 Nicotine dependence, other tobacco product, uncomplicated; Z88.8 Allergy status to other drugs, medicaments and biological substances; V49.40XA Driver injured in collision with unspecified motor vehicles in traffic accident, initial encounter
CPT/HCPCS: J1885; J2360

== ENCOUNTER 2020-10-23 19:51 | Emergency (ER) | payer OTHER, MEDICAID ==
[~2020-10-23] VITALS: Ht 149.9 cm; Wt 74.5 kg
[2020-10-23 19:57] VITALS: TEMP 98.1
[2020-10-23] MEDS ORDERED: NORCO 325 MG-51 TAB PO (20:43)
[2020-10-23] MEDS ORDERED: NAPROSYN500 MG PO (20:43)
[2020-10-23 21:59] VITALS: BP 115/68; PULSE 87
== END 2020-10-23 22:02 | disposition home or self-care (01) ==
LOC: COL.ER 19:51
DX: S09.90XA Unspecified injury of head, initial encounter (principal); S16.1XXA Strain of muscle, fascia and tendon at neck level, initial encounter; S39.012A Strain of muscle, fascia and tendon of lower back, initial encounter; F32.9 Major depressive disorder, single episode, unspecified; F41.9 Anxiety disorder, unspecified; F90.9 Attention-deficit hyperactivity disorder, unspecified type; Z88.8 Allergy status to other drugs, medicaments and biological substances; V89.2XXA Person injured in unspecified motor-vehicle accident, traffic, initial encounter
CPT/HCPCS: J1885; J2405; J7030

== ENCOUNTER 2020-11-05 20:42 | Emergency (ER) | payer MEDICAID ==
[~2020-11-05] VITALS: Ht 149.9 cm; Wt 79.1 kg
[~2020-11-05 20:42] MED LIST changes: +NAPROSYN500 MG PO
[2020-11-05 21:13] VITALS: BP 120/85; PULSE 96; TEMP 97.9
== END 2020-11-05 23:35 | disposition left against medical advice (07) ==
LOC: COL.ER 20:42
DX: N94.89 Other specified conditions associated with female genital organs and menstrual cycle (principal)

== ENCOUNTER 2020-11-06 19:50 | Emergency (ER) | payer MEDICAID ==
[~2020-11-06] VITALS: Ht 149.9 cm; Wt 79.1 kg
[2020-11-06 20:03] VITALS: BP 121/85; TEMP 98.4
[2020-11-06 21:17] LABS: BASO # 0.1 (0.0-0.2); BASO % 0.5 % (0.0-2.0); EOS # 0.2 (0.0-0.7); EOS % 1.3 % (0-4.0); GRAN # 7.7 (1.4-6.5); GRAN % 67.6 % (42.2-75.2); HEMATOCRIT 37.1 % (37.0-47.0); HEMOGLOBIN 12.1 g/dl (12.5-16.0); LYMPH # 2.7 (1.2-3.4); MEAN CELL VOLUME 79 fl (80.0-100.0); MEAN CORPUSCULAR HEMOGLOBIN 26 pg (27.0-31.0); MEAN CORPUSCULAR HGB CONC 33 g/dl (33.0-37.0); MONO # 0.7 (0.1-0.6); PLATELET COUNT 436 K/mm3 (130-400); RED BLOOD COUNT 4.69 M/mm3 (4.10-5.30); REDCELL DISTRIBUTION WIDTH-CV 14.8 % (11.5-14.5)
[2020-11-06 21:26] LABS: ALBUMIN 4.6 gm/dL (3.5-5.0); BILIRUBIN,TOTAL 0.4 mg/dL (0.0-1.0); CALCIUM 9.2 mg/dL (8.4-10.2); CREATININE, serum 0.71 (0.52-1.25); POTASSIUM 3.6 mmol/L (3.4-5.0); TOTAL PROTEIN 8.2 gm/dL (6.4-8.2)
[2020-11-06 21:59] LABS: COLLECTION METHOD CLEAN CATCH
[2020-11-06 22:10] LABS: MUCOUS Present /lpf; PH 6 (5-8); URINE APPEARANCE Hazy; URINE BACTERIA Rare /hpf; URINE BILIRUBIN Negative (NEGATIVE); URINE BLOOD Negative (NEGATIVE); URINE COLOR Yellow; URINE GLUCOSE Negative (NEGATIVE); URINE KETONE Negative (NEGATIVE); URINE LEUKOCYTE ESTERASE Negative (NEGATIVE); URINE NITRATE Negative (NEGATIVE); URINE PROTEIN(semi-quant) 1+ (NEGATIVE); URINE UROBILINOGEN Negative (NEGATIVE)
[2020-11-06 22:58] VITALS: PULSE 74
== END 2020-11-06 22:58 | disposition home or self-care (01) ==
LOC: COL.ER 19:50
PROVIDERS: Nurse Practitioner Primary Care
DX: R10.30 Lower abdominal pain, unspecified (principal); F17.290 Nicotine dependence, other tobacco product, uncomplicated; Z20.822 Contact with and (suspected) exposure to COVID-19
CPT/HCPCS: J1885; J2550; J7030

== ENCOUNTER 2020-12-05 20:42 | Emergency (ER) | payer MEDICAID ==
[~2020-12-05] VITALS: Ht 149.9 cm; Wt 79.5 kg
[2020-12-05 21:04] VITALS: TEMP 97.9
[2020-12-05 22:17] LABS: CREATININE, serum 0.68 (0.52-1.25); POTASSIUM 3.3 mmol/L (3.4-5.0)
[2020-12-05 22:54] VITALS: BP 122/85; PULSE 89
== END 2020-12-05 22:54 | disposition home or self-care (01) ==
LOC: COL.ER 20:42
PROVIDERS: Emergency Medicine
DX: R51.9 Headache, unspecified (principal); Z86.69 Personal history of other diseases of the nervous system and sense organs; Z88.8 Allergy status to other drugs, medicaments and biological substances
CPT/HCPCS: J0780; J1200; J1885; J7120

== ENCOUNTER 2020-12-18 22:49 | Emergency (ER) | payer MEDICAID ==
[~2020-12-18] VITALS: Ht 149.9 cm; Wt 95.5 kg
[2020-12-18 22:53] VITALS: TEMP 98.5
[2020-12-18 23:15] LABS: BASO # 0.1 (0.0-0.2); BASO % 0.5 % (0.0-2.0); EOS # 0.1 (0.0-0.7); EOS % 1.2 % (0-4.0); GRAN # 7.4 (1.4-6.5); GRAN % 71.2 % (42.2-75.2); HEMOGLOBIN 11.4 g/dl (12.5-16.0); LYMPH # 2.2 (1.2-3.4); MEAN CELL VOLUME 81 fl (80.0-100.0); MEAN CORPUSCULAR HEMOGLOBIN 27 pg (27.0-31.0); MEAN CORPUSCULAR HGB CONC 33 g/dl (33.0-37.0); MEAN PLATELET VOLUME 8.8 fl (7.4-10.4); MONO # 0.6 (0.1-0.6); MONO % 5.7 % (1.7-9.3); PLATELET COUNT 505 K/mm3 (130-400); RED BLOOD COUNT 4.31 M/mm3 (4.10-5.30); REDCELL DISTRIBUTION WIDTH-CV 13.3 % (11.5-14.5)
[2020-12-18 23:25] LABS: ALBUMIN 4.6 gm/dL (3.5-5.0); BILIRUBIN,TOTAL 0.4 mg/dL (0.0-1.0); CALCIUM 9.3 mg/dL (8.4-10.2); CREATININE, serum 0.68 (0.52-1.25); POTASSIUM 3.5 mmol/L (3.4-5.0); TOTAL PROTEIN 7.8 gm/dL (6.4-8.2)
[2020-12-18 23:42] LABS: PROLACTIN 22.7 ng/mL (3.0-18.6)
[2020-12-18 23:51] LABS: COLLECTION METHOD CLEAN CATCH
[2020-12-19 00:30] LABS: MUCOUS Present /lpf; PH 6 (5-8); URINE APPEARANCE Hazy; URINE BACTERIA None Seen /hpf; URINE BILIRUBIN Negative (NEGATIVE); URINE BLOOD Negative (NEGATIVE); URINE COLOR Yellow; URINE GLUCOSE Negative (NEGATIVE); URINE KETONE Negative (NEGATIVE); URINE LEUKOCYTE ESTERASE Negative (NEGATIVE); URINE NITRATE Negative (NEGATIVE); URINE PROTEIN(semi-quant) 1+ (NEGATIVE); URINE RBC 0-2 /hpf
[2020-12-19 01:49] LABS: TRICYCLIC ANTIDEPRESS URINE NEGATIVE
[2020-12-19 02:58] VITALS: BP 110/79; PULSE 89
== END 2020-12-19 03:10 | disposition home or self-care (01) ==
LOC: COL.ER 22:49
PROVIDERS: Nurse Practitioner
DX: R41.82 Altered mental status, unspecified (principal); F17.200 Nicotine dependence, unspecified, uncomplicated; F41.9 Anxiety disorder, unspecified; Z90.49 Acquired absence of other specified parts of digestive tract; Z90.710 Acquired absence of both cervix and uterus; Z32.02 Encounter for pregnancy test, result negative; Z88.8 Allergy status to other drugs, medicaments and biological substances
CPT/HCPCS: J1885; J2060; J2550; J7030

== ENCOUNTER 2020-12-20 19:56 | Emergency (ER) | payer MEDICAID ==
[~2020-12-20] VITALS: Ht 149.9 cm; Wt 77.3 kg
[2020-12-20 19:58] VITALS: TEMP 98.1
[2020-12-20 21:13] LABS: BASO # 0.1 (0.0-0.2); BASO % 0.4 % (0.0-2.0); EOS # 0.2 (0.0-0.7); EOS % 1.3 % (0-4.0); GRAN # 7.8 (1.4-6.5); GRAN % 68.9 % (42.2-75.2); HEMOGLOBIN 10.8 g/dl (12.5-16.0); LYMPH # 2.8 (1.2-3.4); LYMPH % 24.2 % (20.0-51.0); MEAN CELL VOLUME 82 fl (80.0-100.0); MEAN CORPUSCULAR HEMOGLOBIN 27 pg (27.0-31.0); MEAN CORPUSCULAR HGB CONC 32 g/dl (33.0-37.0); MEAN PLATELET VOLUME 8.9 fl (7.4-10.4); MONO # 0.6 (0.1-0.6); MONO % 4.9 % (1.7-9.3); PLATELET COUNT 439 K/mm3 (130-400); RED BLOOD COUNT 4.08 M/mm3 (4.10-5.30); REDCELL DISTRIBUTION WIDTH-CV 13.3 % (11.5-14.5)
[2020-12-20 21:15] LABS: HEMATOCRIT 33.6 % (37.0-47.0)
[2020-12-20 21:25] LABS: ALANINE AMINOTRANSFERASE 41 U/L (4-34); ALBUMIN 4.2 gm/dL (3.5-5.0); ALKALINE PHOSPHATASE 84 U/L (50-136); ANION GAP 8 mmol/L (7-16); AST,SGOT 39 U/L (15-37); BILIRUBIN,TOTAL 0.4 mg/dL (0.0-1.0); BLOOD UREA NITROGEN 9 mg/dL (7-17); CALCIUM 8.8 mg/dL (8.4-10.2); CARBON DIOXIDE 27 mmol/L (22-30); CHLORIDE 103 mmol/L (98-107); CREATININE, serum 0.71 (0.52-1.25); GLUCOSE 102 mg/dL (74-106); POTASSIUM 3.4 mmol/L (3.4-5.0); SODIUM 138 mmol/L (137-145); TOTAL PROTEIN 7.3 gm/dL (6.4-8.2)
[2020-12-20 21:40] LABS: TROPONIN-I < 0.012 ng/mL (0.000-0.035)
[2020-12-20 21:41] LABS: PROLACTIN 14.8 ng/mL (3.0-18.6)
[2020-12-20 22:19] VITALS: BP 128/69; PULSE 72
== END 2020-12-20 22:19 | disposition home or self-care (01) ==
LOC: COL.ER 19:56
PROVIDERS: Nurse Practitioner
DX: R25.1 Tremor, unspecified (principal); F41.9 Anxiety disorder, unspecified; R41.82 Altered mental status, unspecified; F17.200 Nicotine dependence, unspecified, uncomplicated; Z90.49 Acquired absence of other specified parts of digestive tract; Z90.710 Acquired absence of both cervix and uterus; Z88.8 Allergy status to other drugs, medicaments and biological substances
CPT/HCPCS: J1885

== ENCOUNTER → 2020-12-21 | Emergency (ER) | payer MEDICAID ==
[~2020-12-21] VITALS: Ht 149.9 cm; Wt 59.1 kg
[~2020-12-21] MED LIST changes: +CIPRO 500MG TA500 MG PO; +MOTRIN 400400 MG/TAB PO; +PEPCID 20MG TAB20 MG PO; +REGLAN 10MG10 MG/TAB PO
[2020-12-21 17:34] VITALS: BP 128/91; PULSE 105; TEMP 97.7
[2020-12-22 09:08] LABS: COLLECTION METHOD CLEAN CATCH
[2020-12-22 10:35] LABS: ALBUMIN 4.5 gm/dL (3.5-5.0); BILIRUBIN,TOTAL 0.4 mg/dL (0.0-1.0); CALCIUM 9.2 mg/dL (8.4-10.2); CREATININE, serum 0.71 (0.52-1.25); MAGNESIUM 2.1 mg/dL (1.6-2.3); TOTAL PROTEIN 7.6 gm/dL (6.4-8.2)
[2020-12-22 10:36] LABS: MUCOUS Present /lpf; PH 6 (5-8); URINE APPEARANCE Hazy; URINE BACTERIA Rare /hpf; URINE BILIRUBIN Negative (NEGATIVE); URINE BLOOD Negative (NEGATIVE); URINE COLOR Yellow; URINE GLUCOSE Negative (NEGATIVE); URINE KETONE Negative (NEGATIVE); URINE LEUKOCYTE ESTERASE Negative (NEGATIVE); URINE NITRATE Negative (NEGATIVE); URINE PROTEIN(semi-quant) 1+ (NEGATIVE); URINE UROBILINOGEN Negative (NEGATIVE)
[2020-12-22 12:18] LABS: BASO # 0.1 (0.0-0.2); BASO % 0.5 % (0.0-2.0); EOS # 0.1 (0.0-0.7); EOS % 0.9 % (0-4.0); GRAN # 7.5 (1.4-6.5); GRAN % 68.7 % (42.2-75.2); HEMATOCRIT 34.8 % (37.0-47.0); HEMOGLOBIN 11.3 g/dl (12.5-16.0); LYMPH # 2.7 (1.2-3.4); LYMPH % 24.4 % (20.0-51.0); MEAN CELL VOLUME 83 fl (80.0-100.0); MEAN CORPUSCULAR HEMOGLOBIN 27 pg (27.0-31.0); MEAN CORPUSCULAR HGB CONC 33 g/dl (33.0-37.0); MEAN PLATELET VOLUME 9.3 fl (7.4-10.4); MONO # 0.6 (0.1-0.6); MONO % 5.1 % (1.7-9.3); PLATELET COUNT 489 K/mm3 (130-400); RED BLOOD COUNT 4.19 M/mm3 (4.10-5.30); REDCELL DISTRIBUTION WIDTH-CV 13.2 % (11.5-14.5)
== END ==
LOC: COL.ER 17:34
PROVIDERS: Emergency Medicine
DX: F32.9 Major depressive disorder, single episode, unspecified (principal); F41.9 Anxiety disorder, unspecified; R25.1 Tremor, unspecified; I10 Essential (primary) hypertension; F17.200 Nicotine dependence, unspecified, uncomplicated

== ENCOUNTER 2020-12-27 20:07 | Emergency (ER) | payer MEDICAID ==
[~2020-12-27] VITALS: Ht 149.9 cm; Wt 77.3 kg
[~2020-12-27 20:07] MED LIST changes: -CIPRO 500MG TA500 MG PO; -MOTRIN 400400 MG/TAB PO; -PEPCID 20MG TAB20 MG PO; -REGLAN 10MG10 MG/TAB PO
[2020-12-27 20:11] VITALS: TEMP 99
[2020-12-27 20:25] LABS: COLLECTION METHOD CLEAN CATCH
[2020-12-27 20:38] LABS: PH 7 (5-8); SQUAMOUS EPITHELIAL 0-2 /hpf; URINE APPEARANCE Clear; URINE BACTERIA Rare /hpf; URINE BILIRUBIN Negative (NEGATIVE); URINE BLOOD Negative (NEGATIVE); URINE COLOR Straw; URINE GLUCOSE Negative (NEGATIVE); URINE KETONE Negative (NEGATIVE); URINE LEUKOCYTE ESTERASE Negative (NEGATIVE); URINE NITRATE Negative (NEGATIVE); URINE PROTEIN(semi-quant) Negative (NEGATIVE); URINE RBC 0-2 /hpf; URINE UROBILINOGEN Negative (NEGATIVE); URINE WBC 0-2 /hpf
[2020-12-27 20:46] LABS: BASO # 0.1 (0.0-0.2); BASO % 0.6 % (0.0-2.0); EOS # 0.2 (0.0-0.7); EOS % 1.4 % (0-4.0); GRAN # 7.5 (1.4-6.5); GRAN % 68.9 % (42.2-75.2); HEMOGLOBIN 11.7 g/dl (12.5-16.0); LYMPH # 2.6 (1.2-3.4); LYMPH % 23.6 % (20.0-51.0); MEAN CELL VOLUME 82 fl (80.0-100.0); MEAN CORPUSCULAR HEMOGLOBIN 27 pg (27.0-31.0); MEAN CORPUSCULAR HGB CONC 33 g/dl (33.0-37.0); MEAN PLATELET VOLUME 8.9 fl (7.4-10.4); MONO # 0.5 (0.1-0.6); MONO % 4.9 % (1.7-9.3); PLATELET COUNT 440 K/mm3 (130-400); RED BLOOD COUNT 4.34 M/mm3 (4.10-5.30); REDCELL DISTRIBUTION WIDTH-CV 12.9 % (11.5-14.5)
[2020-12-27 20:53] LABS: HEMATOCRIT 35.5 % (37.0-47.0)
[2020-12-27 21:03] LABS: ALBUMIN 4.6 gm/dL (3.5-5.0); BILIRUBIN,TOTAL 0.4 mg/dL (0.0-1.0); CALCIUM 9.6 mg/dL (8.4-10.2); CREATININE, serum 0.72 (0.52-1.25); POTASSIUM 3.8 mmol/L (3.4-5.0); TOTAL PROTEIN 7.9 gm/dL (6.4-8.2)
[2020-12-27 22:10] VITALS: BP 132/70; PULSE 76
== END 2020-12-27 22:10 | disposition home or self-care (01) ==
LOC: COL.ER 20:07
PROVIDERS: Emergency Medicine
DX: F41.9 Anxiety disorder, unspecified (principal); I10 Essential (primary) hypertension; F32.9 Major depressive disorder, single episode, unspecified; G40.89 Other seizures; F17.290 Nicotine dependence, other tobacco product, uncomplicated; Z88.8 Allergy status to other drugs, medicaments and biological substances

== ENCOUNTER 2021-02-15 03:17 | Emergency (ER) | payer MEDICAID ==
[~2021-02-15] VITALS: Ht 149.9 cm; Wt 77.3 kg
[2021-02-15 03:48] LABS: COLLECTION METHOD CLEAN CATCH
[2021-02-15 03:57] LABS: MUCOUS Present /lpf; PH 6 (5-8); URINE APPEARANCE Hazy; URINE BACTERIA Rare /hpf; URINE BILIRUBIN Negative (NEGATIVE); URINE BLOOD Negative (NEGATIVE); URINE COLOR Amber; URINE GLUCOSE Negative (NEGATIVE); URINE KETONE Trace (NEGATIVE); URINE LEUKOCYTE ESTERASE 1+ (NEGATIVE); URINE NITRATE Negative (NEGATIVE); URINE PROTEIN(semi-quant) 1+ (NEGATIVE)
[2021-02-15 04:25] LABS: BASO % 0.2 % (0.0-2.0); EOS % 0.1 % (0-4.0); GRAN # 11.8 (1.4-6.5); HEMATOCRIT 34.7 % (37.0-47.0); HEMOGLOBIN 11.1 g/dl (12.5-16.0); LYMPH # 0.7 (1.2-3.4); LYMPH % 5.1 % (20.0-51.0); MEAN CELL VOLUME 84 fl (80.0-100.0); MEAN CORPUSCULAR HEMOGLOBIN 27 pg (27.0-31.0); MEAN CORPUSCULAR HGB CONC 32 g/dl (33.0-37.0); MEAN PLATELET VOLUME 9.2 fl (7.4-10.4); MONO # 0.6 (0.1-0.6); MONO % 4.3 % (1.7-9.3); PLATELET COUNT 357 K/mm3 (130-400); RED BLOOD COUNT 4.13 M/mm3 (4.10-5.30)
[2021-02-15 04:35] LABS: ALBUMIN 4.2 gm/dL (3.5-5.0); BILIRUBIN,TOTAL 0.3 mg/dL (0.0-1.0); CALCIUM 8.8 mg/dL (8.4-10.2); CREATININE, serum 0.67 (0.52-1.25); POTASSIUM 3.7 mmol/L (3.4-5.0); TOTAL PROTEIN 7.7 gm/dL (6.4-8.2)
[2021-02-15] MEDS ORDERED: CIPRO 500MG TA500 MG PO (05:17)
[2021-02-15] MEDS ORDERED: MOTRIN 400400 MG/TAB PO (05:18)
[2021-02-15 05:29] VITALS: BP 117/68; PULSE 98; TEMP 98.8
== END 2021-02-15 05:29 | disposition home or self-care (01) ==
LOC: COL.ER 03:17
PROVIDERS: Emergency Medicine
DX: N39.0 Urinary tract infection, site not specified (principal); K52.9 Noninfective gastroenteritis and colitis, unspecified; Z20.822 Contact with and (suspected) exposure to COVID-19; Z90.710 Acquired absence of both cervix and uterus; Z90.49 Acquired absence of other specified parts of digestive tract; Z88.8 Allergy status to other drugs, medicaments and biological substances
CPT/HCPCS: J0696; J2060; J2270; J2405; Q9967

== ENCOUNTER 2021-02-18 00:10 | Emergency (ER) | payer MEDICAID ==
[~2021-02-18] VITALS: Ht 149.9 cm; Wt 77.3 kg
[~2021-02-18 00:10] MED LIST changes: +CIPRO 500MG TA500 MG PO; +MOTRIN 400400 MG/TAB PO
[2021-02-18 00:18] VITALS: TEMP 98.7
[2021-02-18 00:32] LABS: COLLECTION METHOD CLEAN CATCH
[2021-02-18 00:37] LABS: MUCOUS Present /lpf; PH 7 (5-8); SQUAMOUS EPITHELIAL 0-2 /hpf; URINE APPEARANCE Clear; URINE BACTERIA None Seen /hpf; URINE BILIRUBIN Negative (NEGATIVE); URINE BLOOD Negative (NEGATIVE); URINE COLOR Yellow; URINE GLUCOSE Negative (NEGATIVE); URINE KETONE Trace (NEGATIVE); URINE LEUKOCYTE ESTERASE Negative (NEGATIVE); URINE NITRATE Negative (NEGATIVE); URINE PROTEIN(semi-quant) 1+ (NEGATIVE); URINE RBC 0-2 /hpf; URINE UROBILINOGEN Negative (NEGATIVE)
[2021-02-18 00:51] LABS: MEAN CELL VOLUME 83 fl (80.0-100.0); MEAN CORPUSCULAR HEMOGLOBIN 27 pg (27.0-31.0); MEAN CORPUSCULAR HGB CONC 32 g/dl (33.0-37.0); MEAN PLATELET VOLUME 9.3 fl (7.4-10.4); PLATELET COUNT 341 K/mm3 (130-400); RED BLOOD COUNT 4.12 M/mm3 (4.10-5.30); REDCELL DISTRIBUTION WIDTH-CV 12.9 % (11.5-14.5)
[2021-02-18 01:07] LABS: STREP SCREEN NEGATIVE
[2021-02-18 01:08] LABS: HEMATOCRIT 34.3 % (37.0-47.0)
[2021-02-18 01:15] LABS: MONOSCREEN NEGATIVE
[2021-02-18 01:26] LABS: ALBUMIN 3.9 gm/dL (3.5-5.0); BILIRUBIN,TOTAL 0.1 mg/dL (0.0-1.0); CALCIUM 9.2 mg/dL (8.4-10.2); CREATININE, serum 0.63 (0.52-1.25); POTASSIUM 3.2 mmol/L (3.4-5.0); TOTAL PROTEIN 6.9 gm/dL (6.4-8.2)
[2021-02-18 01:32] LABS: BAND 5 % (0-10); EOSINOPHIL 3 % (0-4); LYMPHOCYTE 41 % (20.0-51.0); METAMYELOCYTE 1 % (0-0); NEUTROPHILS 46 % (42.0-75.2); PLATELET ESTIMATE NORMAL (NORMAL)
[2021-02-18 01:34] VITALS: BP 126/76; PULSE 84
== END 2021-02-18 01:34 | disposition home or self-care (01) ==
LOC: COL.ER 00:10
PROVIDERS: Physician Assistant
DX: M54.5 Low back pain (principal); J02.8 Acute pharyngitis due to other specified organisms; R10.30 Lower abdominal pain, unspecified; F41.9 Anxiety disorder, unspecified; F17.210 Nicotine dependence, cigarettes, uncomplicated; Z90.710 Acquired absence of both cervix and uterus; Z90.49 Acquired absence of other specified parts of digestive tract; Z88.8 Allergy status to other drugs, medicaments and biological substances
CPT/HCPCS: J1885

== ENCOUNTER 2021-03-20 18:46 | Emergency (ER) | payer MEDICAID ==
[~2021-03-20] VITALS: Ht 149.9 cm; Wt 77.3 kg
[2021-03-20 18:57] VITALS: TEMP 98
[2021-03-20 22:43] LABS: BASO % 0.3 % (0.0-2.0); EOS # 0.2 (0.0-0.7); EOS % 1.7 % (0-4.0); GRAN # 6.1 (1.4-6.5); GRAN % 61.1 % (42.2-75.2); HEMATOCRIT 38.1 % (37.0-47.0); HEMOGLOBIN 12.4 g/dl (12.5-16.0); LYMPH # 3.1 (1.2-3.4); LYMPH % 30.8 % (20.0-51.0); MEAN CELL VOLUME 82 fl (80.0-100.0); MEAN CORPUSCULAR HEMOGLOBIN 27 pg (27.0-31.0); MEAN CORPUSCULAR HGB CONC 33 g/dl (33.0-37.0); MEAN PLATELET VOLUME 9.1 fl (7.4-10.4); MONO # 0.6 (0.1-0.6); MONO % 5.6 % (1.7-9.3); PLATELET COUNT 422 K/mm3 (130-400); RED BLOOD COUNT 4.63 M/mm3 (4.10-5.30); REDCELL DISTRIBUTION WIDTH-CV 14.1 % (11.5-14.5)
[2021-03-20 22:53] LABS: ALANINE AMINOTRANSFERASE 18 U/L (4-34); ALBUMIN 4.6 gm/dL (3.5-5.0); ALKALINE PHOSPHATASE 67 U/L (50-136); ANION GAP 8 mmol/L (7-16); AST,SGOT 28 U/L (15-37); BILIRUBIN,TOTAL 0.3 mg/dL (0.0-1.0); BLOOD UREA NITROGEN 16 mg/dL (7-17); CALCIUM 9.2 mg/dL (8.4-10.2); CARBON DIOXIDE 30 mmol/L (22-30); CHLORIDE 99 mmol/L (98-107); CREATININE, serum 0.62 (0.52-1.25); GLUCOSE 93 mg/dL (74-106); LIPASE 79 U/L (23-300); POTASSIUM 3.5 mmol/L (3.4-5.0); SODIUM 138 mmol/L (137-145); TOTAL PROTEIN 8.2 gm/dL (6.4-8.2)
[2021-03-20 23:11] LABS: TROPONIN-I < 0.012 ng/mL (0.000-0.035)
[2021-03-20] MEDS ORDERED: PEPCID 20MG TAB20 MG PO (23:11)
[2021-03-20 23:21] VITALS: BP 114/80; PULSE 84
== END 2021-03-20 23:23 | disposition home or self-care (01) ==
LOC: COL.ER 18:46
PROVIDERS: Nurse Practitioner Primary Care
DX: K29.70 Gastritis, unspecified, without bleeding (principal); J02.8 Acute pharyngitis due to other specified organisms; M54.5 Low back pain; K21.9 Gastro-esophageal reflux disease without esophagitis; F41.9 Anxiety disorder, unspecified; F32.9 Major depressive disorder, single episode, unspecified; G43.909 Migraine, unspecified, not intractable, without status migrainosus; F17.290 Nicotine dependence, other tobacco product, uncomplicated; Z90.49 Acquired absence of other specified parts of digestive tract; Z90.710 Acquired absence of both cervix and uterus
CPT/HCPCS: J1885; J2405

== ENCOUNTER → 2021-04-26 | Outpatient (CLI) | payer MEDICAID ==
[~2021-04-26] MED LIST changes: +PEPCID 20MG TAB20 MG PO; +REGLAN 10MG10 MG/TAB PO
== END ==
LOC: COL.RAD 07:52
DX: R11.2 Nausea with vomiting, unspecified (principal)
CPT/HCPCS: A9541

== ENCOUNTER 2021-07-06 18:59 | Emergency (ER) | payer MEDICAID ==
[~2021-07-06] VITALS: Ht 149.9 cm; Wt 75.9 kg
[~2021-07-06 18:59] MED LIST changes: -REGLAN 10MG10 MG/TAB PO
[2021-07-06 19:19] VITALS: TEMP 99
[2021-07-06 20:51] LABS: BASO % 0.5 % (0.0-2.0); EOS # 0.2 (0.0-0.7); EOS % 2.4 % (0-4.0); GRAN # 5.1 (1.4-6.5); GRAN % 64.1 % (42.2-75.2); HEMOGLOBIN 11.7 g/dl (12.5-16.0); LYMPH # 2.1 (1.2-3.4); LYMPH % 26.8 % (20.0-51.0); MEAN CELL VOLUME 87 fl (80.0-100.0); MEAN CORPUSCULAR HEMOGLOBIN 29 pg (27.0-31.0); MEAN CORPUSCULAR HGB CONC 33 g/dl (33.0-37.0); MEAN PLATELET VOLUME 9.6 fl (7.4-10.4); MONO # 0.5 (0.1-0.6); MONO % 5.9 % (1.7-9.3); PLATELET COUNT 342 K/mm3 (130-400); RED BLOOD COUNT 4.02 M/mm3 (4.10-5.30)
[2021-07-06 20:54] LABS: HEMATOCRIT 35.1 % (37.0-47.0)
[2021-07-06 21:02] LABS: ALANINE AMINOTRANSFERASE 27 U/L (4-34); ALBUMIN 4.3 gm/dL (3.5-5.0); ALKALINE PHOSPHATASE 55 U/L (50-136); ANION GAP 9 mmol/L (7-16); AST,SGOT 26 U/L (15-37); BILIRUBIN,TOTAL 0.3 mg/dL (0.0-1.0); BLOOD UREA NITROGEN 10 mg/dL (7-17); CALCIUM 8.9 mg/dL (8.4-10.2); CARBON DIOXIDE 29 mmol/L (22-30); CHLORIDE 100 mmol/L (98-107); CREATININE, serum 0.68 (0.52-1.25); GLUCOSE 94 mg/dL (74-106); POTASSIUM 3.5 mmol/L (3.4-5.0); SODIUM 138 mmol/L (137-145); TOTAL PROTEIN 7.7 gm/dL (6.4-8.2)
[2021-07-06 21:24] LABS: TROPONIN-I < 0.012 ng/mL (0.000-0.035)
[2021-07-06 23:30] VITALS: BP 114/80; PULSE 79
== END 2021-07-06 23:30 | disposition home or self-care (01) ==
LOC: COL.ER 18:59
PROVIDERS: Emergency Medicine
DX: R07.89 Other chest pain (principal); R10.13 Epigastric pain; K21.9 Gastro-esophageal reflux disease without esophagitis; F41.9 Anxiety disorder, unspecified; F32.9 Major depressive disorder, single episode, unspecified; F17.290 Nicotine dependence, other tobacco product, uncomplicated; Z79.899 Other long term (current) drug therapy

== ENCOUNTER 2021-07-23 14:50 | Emergency (ER) | payer MEDICAID ==
[~2021-07-23] VITALS: Ht 149.9 cm; Wt 71.4 kg
[2021-07-23 15:10] VITALS: TEMP 99.2
[2021-07-23 15:49] LABS: BASO # 0.1 (0.0-0.2); BASO % 0.5 % (0.0-2.0); EOS # 0.1 (0.0-0.7); EOS % 0.8 % (0-4.0); GRAN # 6.9 (1.4-6.5); GRAN % 64.8 % (42.2-75.2); HEMATOCRIT 39.4 % (37.0-47.0); HEMOGLOBIN 13.4 g/dl (12.5-16.0); LYMPH # 2.9 (1.2-3.4); MEAN CELL VOLUME 87 fl (80.0-100.0); MEAN CORPUSCULAR HEMOGLOBIN 30 pg (27.0-31.0); MEAN CORPUSCULAR HGB CONC 34 g/dl (33.0-37.0); MEAN PLATELET VOLUME 9.8 fl (7.4-10.4); MONO # 0.7 (0.1-0.6); MONO % 6.4 % (1.7-9.3); PLATELET COUNT 419 K/mm3 (130-400); RED BLOOD COUNT 4.55 M/mm3 (4.10-5.30)
[2021-07-23 16:08] LABS: ALANINE AMINOTRANSFERASE 17 U/L (0-55); ALBUMIN 4.3 gm/dL (3.5-5.0); ALKALINE PHOSPHATASE 65 U/L (0-750); ANION GAP 11 mmol/L; AST,SGOT 24 U/L (5-34); BILIRUBIN,TOTAL 0.2 mg/dL (0.2-1.2); BLOOD UREA NITROGEN 16 mg/dL (7-19); CALCIUM 9.8 mg/dL (8.4-10.2); CARBON DIOXIDE 23 mEq/L (22-29); CHLORIDE 104 mmol/L (98-107); CREATININE, serum 0.91 mg/dL (0.57-1.11); GLUCOSE 85 mg/dL (70-99); POTASSIUM 3.6 mmol/L (3.5-4.5); SODIUM 138 mmol/L (136-145); TOTAL PROTEIN 8.5 gm/dL (6.2-8.1)
[2021-07-23 16:17] LABS: TROPONIN-I < 0.010 ng/mL (0.00-0.033)
[2021-07-23] MEDS ORDERED: REGLAN 10MG10 MG/TAB PO (16:34)
[2021-07-23 16:50] VITALS: BP 100/62; PULSE 74
== END 2021-07-23 16:50 | disposition home or self-care (01) ==
LOC: COL.ER 14:50
PROVIDERS: Emergency Medicine
DX: R07.9 Chest pain, unspecified (principal); R10.13 Epigastric pain; R73.9 Hyperglycemia, unspecified; F41.9 Anxiety disorder, unspecified; F31.9 Bipolar disorder, unspecified; Z79.899 Other long term (current) drug therapy; Z20.822 Contact with and (suspected) exposure to COVID-19
CPT/HCPCS: J1170; J2270; J2405; J2765; J7030

== ENCOUNTER 2021-09-16 18:18 | Emergency (ER) | payer MEDICAID ==
[~2021-09-16] VITALS: Ht 149.9 cm; Wt 72.7 kg
[~2021-09-16 18:18] MED LIST changes: +REGLAN 10MG10 MG/TAB PO
[2021-09-16 18:30] VITALS: TEMP 97.2
[2021-09-16 19:52] VITALS: BP 144/78; PULSE 76
== END 2021-09-16 19:57 | disposition home or self-care (01) ==
LOC: COL.ER 18:18
DX: R51.9 Headache, unspecified (principal); G89.29 Other chronic pain; K21.9 Gastro-esophageal reflux disease without esophagitis; F41.9 Anxiety disorder, unspecified; F31.9 Bipolar disorder, unspecified; F43.10 Post-traumatic stress disorder, unspecified; Z86.69 Personal history of other diseases of the nervous system and sense organs
CPT/HCPCS: J1790

== ENCOUNTER 2021-10-17 20:48 | Emergency (ER) | payer MEDICAID ==
[~2021-10-17] VITALS: Ht 149.9 cm; Wt 75.9 kg
[2021-10-17 20:55] VITALS: TEMP 98.3
[2021-10-17 21:40] LABS: BASO % 0.4 % (0.0-2.0); EOS # 0.1 K/mm3 (0.0-0.7); EOS % 0.8 % (0.0-4.0); GRAN # 6.7 K/mm3 (1.4-6.5); GRAN % 64.6 % (42.2-75.2); HEMOGLOBIN 11.7 g/dl (12.5-16.0); LYMPH # 2.9 K/mm3 (1.2-3.4); LYMPH % 28.2 % (20.0-51.0); MEAN CELL VOLUME 89 fl (80.0-100.0); MEAN CORPUSCULAR HEMOGLOBIN 30 pg (27-31); MEAN CORPUSCULAR HGB CONC 34 g/dl (33.0-37.0); MEAN PLATELET VOLUME 9.7 fl (7.4-10.4); MONO # 0.6 K/mm3 (0.1-0.6); MONO % 5.5 % (1.7-9.3); PLATELET COUNT 401 K/mm3 (130-400); RED BLOOD COUNT 3.89 M/mm3 (4.10-5.30); REDCELL DISTRIBUTION WIDTH-CV 12.3 % (11.5-14.5)
[2021-10-17 21:47] LABS: HEMATOCRIT 34.7 % (37.0-47.0)
[2021-10-17 22:02] LABS: ALANINE AMINOTRANSFERASE 10 U/L (0-55); ALBUMIN 3.9 gm/dL (3.5-5.0); ALKALINE PHOSPHATASE 51 U/L (40-150); ANION GAP 13 mmol/L (7-16); AST,SGOT 14 U/L (5-34); BILIRUBIN,TOTAL 0.1 mg/dL (0.2-1.2); BLOOD UREA NITROGEN 16 mg/dL (7-19); CALCIUM 9.1 mg/dL (8.4-10.2); CARBON DIOXIDE 24 mmol/L (22-29); CHLORIDE 101 mmol/L (98-107); CREATININE, serum 0.74 mg/dL (0.57-1.11); GLUCOSE 87 mg/dL (70-99); LIPASE 24 U/L (8-78); POTASSIUM 3.6 mmol/L (3.5-4.5); SODIUM 138 mmol/L (136-145); TOTAL PROTEIN 7.4 gm/dL (6.2-8.1)
[2021-10-17 22:12] LABS: TROPONIN-I < 0.010 ng/mL (0.00-0.033)
[2021-10-17] MEDS ORDERED: MEDROL 4MG DOSPA4 MG PO (22:20)
[2021-10-17] MEDS ORDERED: PERCOCET 325 MG1 TA2 PO (22:20)
[2021-10-17 22:46] VITALS: BP 104/60; PULSE 77
== END 2021-10-17 23:03 | disposition home or self-care (01) ==
LOC: COL.ER 20:48
PROVIDERS: Emergency Medicine
DX: R07.2 Precordial pain (principal); F41.9 Anxiety disorder, unspecified; F32.A Depression, unspecified; G40.909 Epilepsy, unspecified, not intractable, without status epilepticus; F17.290 Nicotine dependence, other tobacco product, uncomplicated; Z79.899 Other long term (current) drug therapy
CPT/HCPCS: J1885; J2270

== ENCOUNTER 2022-02-26 21:42 | Emergency (ER) | payer MEDICAID ==
[~2022-02-26] VITALS: Ht 167.6 cm; Wt 90.9 kg
[~2022-02-26 21:42] MED LIST changes: +MEDROL 4MG DOSPA4 MG PO
[2022-02-26 21:52] VITALS: TEMP 98.5
[2022-02-26 22:13] LABS: BASO % 0.4 % (0.0-2.0); EOS # 0.1 K/mm3 (0.0-0.7); GRAN # 5.1 K/mm3 (1.4-6.5); GRAN % 55.8 % (42.2-75.2); HEMATOCRIT 33.9 % (37.0-47.0); HEMOGLOBIN 11.4 g/dl (12.5-16.0); LYMPH # 3.5 K/mm3 (1.2-3.4); LYMPH % 37.5 % (20.0-51.0); MEAN CELL VOLUME 90 fl (80.0-100.0); MEAN CORPUSCULAR HEMOGLOBIN 30 pg (27-31); MEAN CORPUSCULAR HGB CONC 34 g/dl (33.0-37.0); MEAN PLATELET VOLUME 9.8 fl (7.4-10.4); MONO # 0.5 K/mm3 (0.1-0.6); MONO % 5.1 % (1.7-9.3); PLATELET COUNT 345 K/mm3 (130-400); RED BLOOD COUNT 3.75 M/mm3 (4.10-5.30); REDCELL DISTRIBUTION WIDTH-CV 11.9 % (11.5-14.5)
[2022-02-26 22:29] LABS: BILIRUBIN,TOTAL 0.1 mg/dL (0.2-1.2); CALCIUM 8.5 mg/dL (8.4-10.2); CREATININE, serum 0.71 mg/dL (0.57-1.11); TOTAL PROTEIN 6.9 gm/dL (6.2-8.1)
[2022-02-26 23:32] LABS: TRICYCLIC ANTIDEPRESS URINE NEGATIVE
[2022-02-26 23:49] VITALS: BP 128/78; PULSE 76
== END 2022-02-26 23:50 | disposition home or self-care (01) ==
LOC: COL.ER 21:42
PROVIDERS: Nurse Practitioner
DX: F41.9 Anxiety disorder, unspecified (principal); T40.711A Poisoning by cannabis, accidental (unintentional), initial encounter; F17.210 Nicotine dependence, cigarettes, uncomplicated
CPT/HCPCS: J2060; J7030

== ENCOUNTER 2022-03-26 21:40 | Emergency (ER) | payer MEDICAID ==
[~2022-03-26] VITALS: Ht 149.9 cm; Wt 75.9 kg
[2022-03-26 21:43] VITALS: TEMP 98.9
[2022-03-26 22:37] LABS: BASO # 0.1 K/mm3 (0.0-0.2); BASO % 0.6 % (0.0-2.0); EOS # 0.1 K/mm3 (0.0-0.7); EOS % 0.6 % (0.0-4.0); GRAN # 4.7 K/mm3 (1.4-6.5); GRAN % 57.9 % (42.2-75.2); HEMOGLOBIN 11.1 g/dl (12.5-16.0); LYMPH # 2.8 K/mm3 (1.2-3.4); LYMPH % 34.3 % (20.0-51.0); MEAN CELL VOLUME 93 fl (80.0-100.0); MEAN CORPUSCULAR HEMOGLOBIN 30 pg (27-31); MEAN CORPUSCULAR HGB CONC 33 g/dl (33.0-37.0); MEAN PLATELET VOLUME 9.5 fl (7.4-10.4); MONO # 0.5 K/mm3 (0.1-0.6); MONO % 6.2 % (1.7-9.3); PLATELET COUNT 318 K/mm3 (130-400); RED BLOOD COUNT 3.69 M/mm3 (4.10-5.30); REDCELL DISTRIBUTION WIDTH-CV 11.8 % (11.5-14.5)
[2022-03-26 22:38] LABS: HEMATOCRIT 34.2 % (37.0-47.0)
[2022-03-26 22:57] LABS: ALANINE AMINOTRANSFERASE 11 U/L (0-55); ALBUMIN 3.5 gm/dL (3.5-5.0); ALKALINE PHOSPHATASE 41 U/L (40-150); ANION GAP 12 mmol/L (7-16); AST,SGOT 8 U/L (5-34); BILIRUBIN,TOTAL 0.1 mg/dL (0.2-1.2); BLOOD UREA NITROGEN 11 mg/dL (7-19); CALCIUM 8.1 mg/dL (8.4-10.2); CARBON DIOXIDE 24 mmol/L (22-29); CHLORIDE 104 mmol/L (98-107); CREATININE, serum 0.67 mg/dL (0.57-1.11); GLUCOSE 87 mg/dL (70-99); POTASSIUM 3.2 mmol/L (3.5-4.5); SODIUM 140 mmol/L (136-145); TOTAL PROTEIN 6.6 gm/dL (6.2-8.1)
[2022-03-26 22:58] LABS: ALCOHOL(ethanol),MEDICAL < 10 mg/dL (0-10)
[2022-03-26 23:07] LABS: TROPONIN-I < 0.010 ng/mL (0.00-0.033)
[2022-03-26 23:29] LABS: COLLECTION METHOD CLEAN CATCH
[2022-03-26 23:35] LABS: MUCOUS Present (NOT PRESENT); PH 6 (5-8); SQUAMOUS EPITHELIAL 0-2 /hpf (0-10); URINE APPEARANCE Clear (CLEAR/HAZY); URINE BACTERIA None Seen /hpf (NONE SEEN); URINE BILIRUBIN Negative (NEGATIVE); URINE BLOOD 1+ (NEGATIVE); URINE COLOR Yellow (YELLOW); URINE GLUCOSE Negative (NEGATIVE); URINE KETONE Negative (NEGATIVE); URINE LEUKOCYTE ESTERASE Negative (NEGATIVE); URINE NITRATE Negative (NEGATIVE); URINE PROTEIN(semi-quant) Negative (NEGATIVE); URINE UROBILINOGEN Negative (NEGATIVE)
[2022-03-26 23:43] LABS: TRICYCLIC ANTIDEPRESS URINE NEGATIVE
[2022-03-26 23:56] VITALS: BP 107/68; PULSE 74
== END 2022-03-26 23:55 | disposition home or self-care (01) ==
LOC: COL.ER 21:40
PROVIDERS: Emergency Medicine
DX: G40.909 Epilepsy, unspecified, not intractable, without status epilepticus (principal); E87.6 Hypokalemia; Z28.310 Unvaccinated for COVID-19; Z79.899 Other long term (current) drug therapy
CPT/HCPCS: J7030

== ENCOUNTER 2022-04-28 15:25 | Emergency (ER) | payer MEDICAID ==
[~2022-04-28] VITALS: Ht 124.5 cm; Wt 79.1 kg
[2022-04-28 16:13] VITALS: BP 100/73; TEMP 97.6
[2022-04-28 16:21] LABS: COLLECTION METHOD CLEAN CATCH
[2022-04-28 16:38] LABS: MUCOUS Present (NOT PRESENT); PH 6 (5-8); SQUAMOUS EPITHELIAL 0-2 /hpf (0-10); URINE APPEARANCE Clear (CLEAR/HAZY); URINE BACTERIA None Seen /hpf (NONE SEEN); URINE BILIRUBIN Negative (NEGATIVE); URINE BLOOD Negative (NEGATIVE); URINE COLOR Yellow (YELLOW); URINE GLUCOSE Negative (NEGATIVE); URINE KETONE Trace (NEGATIVE); URINE LEUKOCYTE ESTERASE Negative (NEGATIVE); URINE NITRATE Negative (NEGATIVE); URINE PROTEIN(semi-quant) Negative (NEGATIVE); URINE UROBILINOGEN Negative (NEGATIVE)
[2022-04-28] MEDS ORDERED: XANAX 0.5MG0.5 MG PO (17:09)
[2022-04-28] MEDS ORDERED: PROTONIX20 MG PO (17:10)
[2022-04-28] MEDS ORDERED: DEPAKOTE 250MG250 MG (17:12)
[2022-04-28 18:41] VITALS: PULSE 58
== END 2022-04-28 18:41 | disposition home or self-care (01) ==
LOC: COL.ER 15:25
PROVIDERS: Emergency Medicine
DX: R35.0 Frequency of micturition (principal); Z11.3 Encounter for screening for infections with a predominantly sexual mode of transmission; F17.290 Nicotine dependence, other tobacco product, uncomplicated

== ENCOUNTER 2022-06-09 18:20 | Emergency (ER) | payer MEDICAID ==
[~2022-06-09] VITALS: Ht 149.9 cm; Wt 75.9 kg
[~2022-06-09 18:20] MED LIST changes: +DEPAKOTE 250MG250 MG; +PROTONIX20 MG PO; +XANAX 0.5MG0.5 MG PO
[2022-06-09 18:24] VITALS: TEMP 97.4
[2022-06-09 19:48] VITALS: BP 124/78; PULSE 76
== END 2022-06-09 19:48 | disposition home or self-care (01) ==
LOC: COL.ER 18:20
DX: R51.9 Headache, unspecified (principal); F17.210 Nicotine dependence, cigarettes, uncomplicated; Z86.69 Personal history of other diseases of the nervous system and sense organs; Z28.310 Unvaccinated for COVID-19
CPT/HCPCS: J1885; J2765; J7030

== ENCOUNTER 2022-08-10 07:30 | Outpatient (CLI) | payer MEDICAID ==
[~2022-08-10] VITALS: Ht 149.9 cm; Wt 74.0 kg
[2022-08-10 08:41] VITALS: BP 101/67; PULSE 68; TEMP 98.3
[2022-08-10 08:52] VITALS: BP 101/67; PULSE 69; TEMP 98.3
[2022-08-10] MEDS ORDERED: CRANBERRY FRUI425 MG PO (08:57)
[2022-08-10] MEDS ORDERED: FIORICET 325 MG1 TA1 PO (08:57)
[2022-08-10] MEDS ORDERED: VOLTAREN GEL 1%1 TU TP (08:58)
[2022-08-10] MEDS ORDERED: FLEXERIL 1010 MG/TAB PO (08:58)
[2022-08-10] MEDS ORDERED: MOBIC15 MG PO (08:59)
[2022-08-10] MEDS ORDERED: LIDODERM 5% PATC1 EA TP (08:59)
[2022-08-10] MEDS ORDERED: TRILEPTAL 300M300 MG PO (09:01)
[2022-08-10] MEDS ORDERED: ZOFRAN ODT4 MG PO (09:02)
[2022-08-10] MEDS ORDERED: CEPHALEXIN500 M1 PO (09:25)
[2022-08-10 09:38] VITALS: BP 114/72; PULSE 73
--- NOTE | 2022-08-10 10:05 | NUR ---
Discharge instructions given to pt.Pt verbalizes understanding.pt escorted out by this nurse.
--- NOTE | 2022-08-10 10:05 | NUR ---
Discharge instructions given to pt.Pt verbalizes understanding.pt escorted out by this nurse.
== END 2022-08-10 10:06 ==
LOC: COL.CAR 07:30
DX: R00.2 Palpitations (principal); R55 Syncope and collapse; I10 Essential (primary) hypertension
CPT/HCPCS: C1764

== ENCOUNTER 2023-02-27 16:17 | Emergency (ER) | payer MEDICAID ==
[~2023-02-27] VITALS: Ht 149.9 cm; Wt 70.5 kg
[~2023-02-27 16:17] MED LIST changes: +CRANBERRY FRUI425 MG PO; +FIORICET 325 MG1 TA1 PO; +K-DUR20 MEQ PO; +MOBIC15 MG PO; +TRILEPTAL 300M300 MG PO; +VOLTAREN GEL 1%1 TU TP
[2023-02-27 16:45] VITALS: TEMP 98.2
[2023-02-27] MEDS ORDERED: FLEXERIL 1010 MG/TAB PO (18:18)
[2023-02-27 18:29] VITALS: BP 1010/74; PULSE 74
== END 2023-02-27 18:29 | disposition home or self-care (01) ==
LOC: COL.ER 16:17
DX: G43.909 Migraine, unspecified, not intractable, without status migrainosus (principal); M62.830 Muscle spasm of back; F17.290 Nicotine dependence, other tobacco product, uncomplicated; Z79.899 Other long term (current) drug therapy
CPT/HCPCS: J0780; J1200; J1885

== ENCOUNTER 2024-02-27 10:06 | Emergency (ER) | payer MEDICAID ==
[~2024-02-27] VITALS: Ht 149.9 cm; Wt 82.8 kg
[~2024-02-27 10:06] MED LIST changes: +BENTYL 20MG20 MG/TAB PO; +PROMETHAZINE12.5 M5 PO
[2024-02-27 10:13] VITALS: TEMP 98.7
[2024-02-27] MEDS ORDERED: Ondansetron 4 MG/2 ML VIAL IV ONE (11:30)
[2024-02-27] MEDS ORDERED: NS 1,000 ML IV ONE (11:30)
[2024-02-27] MEDS ORDERED: HYDROmorphone 0.5 MG/0.5 ML SYRINGE IV ONE (11:30)
[2024-02-27 11:42] LABS: ALBUMIN 3.8 g/dL (3.5-5.0); BILIRUBIN,TOTAL 0.2 mg/dL (0.2-1.2); C-REACTIVE PROTEIN 1.02 mg/dL (0.00-0.50); CALCIUM 9.2 mg/dL (8.4-10.2); CREATININE, serum 0.78 mg/dL (0.57-1.11); POTASSIUM 3.5 mEq/L (3.5-4.5); TOTAL PROTEIN 7.5 g/dl (6.2-8.1)
[2024-02-27 11:46] LABS: COLLECTION METHOD CLEAN CATCH
[2024-02-27 11:54] LABS: BASO % 0.6 % (0.0-2.0); EOS # 0.1 K/mm3 (0.0-0.7); EOS % 1.6 % (0.0-4.0); GRAN # 4.7 K/mm3 (1.4-6.5); GRAN % 66.9 % (42.2-75.2); HEMOGLOBIN 12.1 g/dl (12.5-16.0); LYMPH # 1.8 K/mm3 (1.2-3.4); LYMPH % 26.2 % (20.0-51.0); MEAN CELL VOLUME 89 fl (80.0-100.0); MEAN CORPUSCULAR HEMOGLOBIN 30 pg (27-31); MEAN CORPUSCULAR HGB CONC 34 g/dl (33.0-37.0); MEAN PLATELET VOLUME 9.9 fl (7.4-10.4); MONO # 0.3 K/mm3 (0.1-0.6); MONO % 4.4 % (1.7-9.3); PLATELET COUNT 432 K/mm3 (130-400); RED BLOOD COUNT 4.06 M/mm3 (4.10-5.30); REDCELL DISTRIBUTION WIDTH-CV 11.9 % (11.5-14.5)
[2024-02-27 12:05] LABS: PH 5.5 (5.0-8.5); URINE APPEARANCE TURBID (CLEAR/HAZY); URINE BLOOD NEGATIVE (NEGATIVE); URINE COLOR YELLOW (YELLOW); URINE GLUCOSE NEGATIVE (NEGATIVE); URINE KETONE TRACE (NEGATIVE); URINE NITRATE NEGATIVE (NEGATIVE); URINE PROTEIN(semi-quant) NEGATIVE (NEGATIVE); URINE UROBILINOGEN 0.2 E.U/dL (0.2-1.0)
[2024-02-27] MEDS ORDERED: Ketorolac 15 MG/ML VIAL IV ONE (12:45)
[2024-02-27] MEDS ORDERED: Iohexol 300 - 100 ML VIAL IV ONE (12:46)
[2024-02-27] MEDS ORDERED: NS 100 ML IV SCH (12:47)
[2024-02-27] MEDS ORDERED: ULTRAM 50MG TAB50 MG PO (13:44)
[2024-02-27 13:59] VITALS: BP 106/68; PULSE 75
== END 2024-02-27 14:00 | disposition home or self-care (01) ==
LOC: COL.ER 10:06
PROVIDERS: Nurse Practitioner
DX: R10.31 Right lower quadrant pain (principal)
CPT/HCPCS: J1170; J1885; J2405; J7030; Q9967